=== PATIENT | female | born 1940 | race Caucasian/White ===

== ENCOUNTER → 2016-07-22 | Outpatient (CLI) | payer MEDICARE, OTHER ==
[~2016-07-22] MED LIST: APIX5TAB PO
== END | disposition home or self-care (01) ==
LOC: Rad HDHVI 10:31
PROVIDERS: ATTEND Internal Medicine Cardiovascular Disease
DX: I11.0 Hypertensive heart disease with heart failure (principal); I42.0 Dilated cardiomyopathy; I48.91 Unspecified atrial fibrillation; Z95.810 Presence of automatic (implantable) cardiac defibrillator; Z86.79 Personal history of other diseases of the circulatory system
CPT/HCPCS: 93306

== ENCOUNTER → 2016-07-31 | Outpatient (CLI) | payer MEDICARE, OTHER ==
[~2016-07-31] VITALS: Ht 157.5 cm; Wt 54.9 kg
[~2016-07-31] MED LIST changes: +ADENOSINE IV ONE; +GIVE UN DILUTED IV ONE
== END | disposition home or self-care (01) ==
LOC: HDHVI->DVH 09:40
PROVIDERS: ATTEND Internal Medicine Cardiovascular Disease
DX: I10 Essential (primary) hypertension (principal); Z95.0 Presence of cardiac pacemaker
CPT/HCPCS: 78452; 93005; 96374; 96375; A9500; J0153

== ENCOUNTER → 2016-08-12 | Outpatient (CLI) | payer MEDICARE, OTHER ==
[~2016-08-12] MED LIST changes: -ADENOSINE IV ONE; -GIVE UN DILUTED IV ONE
[2016-08-12 10:34] VITALS: BP 151/84
[2016-08-12 11:05] VITALS: BP 148/97
[2016-08-12 16:38] LABS: Basophils # (auto) 0 uL; Basophils % (auto) 0.3 % (0.0-2.0); Eosinophils # (auto) 0.2 uL; Eosinophils % (auto) 4.1 % (0.0-7.0); Hematocrit 43.1 % (36.0-46.0); Lymphocytes # (auto) 0.5 uL; Lymphocytes % (auto) 8.2 % (10.0-50.0); Mean Corpuscular Hemoglobin 30.6 pg (28.0-32.0); Mean Corpuscular Hgb Conc. 32.5 g/dL (32.0-36.0); Mean Corpuscular Volume 94.2 fL (80.0-100.0); Mean Platelet Volume 9.2 fL (7.4-10.4); Monocytes # (auto) 0.3 uL; Monocytes % (auto) 4.6 % (0.0-12.0); Neutrophils # (auto) 4.9 uL; Neutrophils % (auto) 82.8 % (37.0-80.0); Platelet Count (auto) 220 10^3/uL (140-450); Red Cell Distribution Width 15.1 % (11.6-16.0); White Blood Cell 5.9 10^3/uL (4.4-10.8)
[2016-08-12 16:49] LABS: Potassium 4.7 mmol/L (3.5-5.1)
[2016-08-12 16:50] LABS: INR 0.99 (0.9-1.15); Partial Thromboplastin Time 28.1 sec (22.64-33.71); Prothrombin Time 10.2 sec (9.37-12.3)
[2016-08-12 16:55] LABS: BUN/Creatinine Ratio 12.4; Calcium 8.9 mg/dL (8.5-10.1)
== END | disposition home or self-care (01) ==
LOC: Rad HDHVI 10:08
PROVIDERS: ATTEND Internal Medicine Cardiovascular Disease
DX: I10 Essential (primary) hypertension (principal); D64.9 Anemia, unspecified; R79.1 Abnormal coagulation profile
CPT/HCPCS: 36415; 71020; 80048; 85025; 85610; 85730; 93005; G0463

== ENCOUNTER 2016-08-14 08:16 | Inpatient (IN) | payer MEDICARE, OTHER ==
[~2016-08-14] VITALS: Ht 30.5 cm; Wt 60.2 kg
[2016-08-14] MEDS ORDERED: LIDOCAINE 2%HCL (LOCAL ANESTH.) INJ 20ML MDV ONE (08:18)
[2016-08-14] MEDS ORDERED: VANCOMYCIN 1GM/250ML D5W 250 ML IV ONE (08:45)
[2016-08-14] MEDS ORDERED: VANCOMYCIN HCL 1000 MG VL IR ONE (08:45)
[2016-08-14] MEDS ORDERED: ceFAZolin 1GM/50ML D5W 50 ML IV ONE (08:45)
[2016-08-14] MEDS ORDERED: MIDAZOLAM HCL 1MG/1ML-2 ML VIAL ONE (09:27)
[2016-08-14] MEDS ORDERED: fentaNYL CITRATE 100 MCG/2 ML VL ONE (09:27)
[2016-08-14] MEDS ORDERED: ATROPINE SULF 0.5 MG/5ML SYR ONE (09:53)
[2016-08-14] MEDS ORDERED: NITROGLYCERIN 0.4 MG SL TAB SL PRN (11:45)
[2016-08-14] MEDS ORDERED: MORPHINE SULF INJ 2 MG/ML SYRINGE 1ML IV PRN (11:45)
[2016-08-14] MEDS ORDERED: HYDROcodone-ACET 5/325MG TAB PO PRN (11:45)
[2016-08-14] MEDS ORDERED: ACETAMINOPHEN 325 MG TAB PO PRN (11:45)
[2016-08-14] MEDS ORDERED: METOCLOPRAMIDE HCL 5MG/ml INJ 2ml VIAL ONE (13:16)
[2016-08-14] MEDS ORDERED: METOCLOPRAMIDE HCL 5MG/ml INJ 2ml VIAL IV ONE (13:30)
[2016-08-14 17:30] VITALS: BP 136/73
[2016-08-14 20:00] VITALS: BP 149/82
[2016-08-14] MEDS: VANCOMYCIN 1GM/250ML D5W 250 ML IV SCH (21:30)
[2016-08-14 22:01] VITALS: BP 149/82
[2016-08-15 05:33] VITALS: BP 130/80
[2016-08-15 08:00] VITALS: BP 133/75
[2016-08-15 09:00] VITALS: BP 133/75
[2016-08-15] MEDS: VANCOMYCIN 1GM/250ML D5W 250 ML IV SCH (10:00)
[2016-08-15 13:00] VITALS: BP 137/74
== END 2016-08-15 16:39 | disposition home or self-care (01) | DRG 226 ==
LOC: CATH 08:16 → EAST 08:17 → TELE-WESTW 17:51
PROVIDERS: ADMIT Internal Medicine Cardiovascular Disease; ATTEND Internal Medicine Cardiovascular Disease
PROC: 02HL3KZ Insertion of Defibrillator Lead into Left Ventricle, Percutaneous Approach (ICD-10-PCS; principal; 2016-08-14)
PROC: 0JH609Z Insertion of Cardiac Resynchronization Defibrillator Pulse Generator into Chest Subcutaneous Tissue and Fascia, Open Approach (ICD-10-PCS; 2016-08-14)
PROC: 02H63KZ Insertion of Defibrillator Lead into Right Atrium, Percutaneous Approach (ICD-10-PCS; 2016-08-14)
PROC: 0JPT0PZ Removal of Cardiac Rhythm Related Device from Trunk Subcutaneous Tissue and Fascia, Open Approach (ICD-10-PCS; 2016-08-14)
PROC: 02PA3MZ Removal of Cardiac Lead from Heart, Percutaneous Approach (ICD-10-PCS; 2016-08-14)
DX: Z45.02 Encounter for adjustment and management of automatic implantable cardiac defibrillator (principal); I50.21 Acute systolic (congestive) heart failure; I42.0 Dilated cardiomyopathy; R64 Cachexia
CPT/HCPCS: 71010; 93005; J0461; J2250

== ENCOUNTER 2017-02-21 18:54 | Emergency (ER) | payer MEDICARE, OTHER ==
[~2017-02-21] VITALS: Ht 157.5 cm; Wt 54.4 kg
[2017-02-21 19:44] LABS: Basophils # (auto) 0 uL; Basophils % (auto) 0.5 % (0.0-2.0); Eosinophils # (auto) 0.2 uL; Eosinophils % (auto) 3.6 % (0.0-7.0); Hematocrit 38.7 % (36.0-46.0); Hemoglobin 13.3 g/dL (12.2-16.2); Lymphocytes # (auto) 0.6 uL; Lymphocytes % (auto) 11.1 % (10.0-50.0); Mean Corpuscular Hemoglobin 31.9 pg (28.0-32.0); Mean Corpuscular Hgb Conc. 34.2 g/dL (32.0-36.0); Mean Corpuscular Volume 93.2 fL (80.0-100.0); Mean Platelet Volume 7.5 fL (6.9-10.8); Monocytes # (auto) 0.4 uL; Monocytes % (auto) 7.4 % (0.0-12.0); Neutrophils % (auto) 77.4 % (37.0-80.0); Platelet Count (auto) 180 10^3/uL (140-450); Red Cell Distribution Width 13.4 % (11.8-14.3); White Blood Cell 5.1 10^3/uL (4.4-10.8)
[2017-02-21 19:59] LABS: INR 0.98 (0.9-1.15); Partial Thromboplastin Time 29.3 sec (22.64-33.71); Prothrombin Time 10.7 sec (9.37-12.3)
[2017-02-21 20:10] LABS: Albumin 3.2 g/dL (3.4-5.0); Alkaline Phosphatase 133 U/L (45-117); Anion Gap 8 (5-15); Aspartate Aminotransferase 31 U/L (15-37); BUN/Creatinine Ratio 25.7; Bilirubin, Total 0.5 mg/dL (0.2-1.0); Blood Urea Nitrogen 19 mg/dL (7-18); Calcium 8.7 mg/dL (8.5-10.1); Carbon Dioxide 27 mmol/L (21-32); Chloride 98 mmol/L (98-107); GFR African American 99 mL/min; GFR Non-African American 82 mL/min; Glucose 110 mg/dL (74-106); Magnesium 1.7 mg/dL (1.6-2.6); Potassium 4.1 mmol/L (3.5-5.1); Sodium 133 mmol/L (136-145); Total Protein 6.8 g/dL (6.4-8.2)
[2017-02-21 21:30] VITALS: BP 135/84
== END 2017-02-21 23:01 | disposition left against medical advice (07) ==
LOC: ER 18:55
DX: I48.91 Unspecified atrial fibrillation (principal); T82.111A Breakdown (mechanical) of cardiac pulse generator (battery), initial encounter; F41.9 Anxiety disorder, unspecified; I50.9 Heart failure, unspecified; Z95.0 Presence of cardiac pacemaker; Z88.0 Allergy status to penicillin; Y92.89 Other specified places as the place of occurrence of the external cause; Z53.29 Procedure and treatment not carried out because of patient's decision for other reasons
CPT/HCPCS: 36415; 71010; 80053; 83735; 84484; 85025; 85610; 85730; 93005

== ENCOUNTER → 2017-03-06 | Outpatient (CLI) | payer MEDICARE, OTHER ==
[~2017-03-06] MED LIST changes: +B-COCAP34 OR; +CALC1TAB47 PO; +CHOL20007 PO; +HYDR12.56 PO; +LISI40TA PO; +SOTA80TA PO
[2017-03-06 12:05] VITALS: BP 108/66
[2017-03-06 12:40] VITALS: BP 111/70
[2017-03-06 16:27] LABS: Basophils # (auto) 0 uL; Basophils % (auto) 0.5 % (0.0-2.0); Eosinophils # (auto) 0.3 uL; Eosinophils % (auto) 5.6 % (0.0-7.0); Hematocrit 38.5 % (36.0-46.0); Hemoglobin 13.2 g/dL (12.2-16.2); Lymphocytes # (auto) 0.6 uL; Lymphocytes % (auto) 11.3 % (10.0-50.0); Mean Corpuscular Hemoglobin 31.7 pg (28.0-32.0); Mean Corpuscular Hgb Conc. 34.2 g/dL (32.0-36.0); Mean Corpuscular Volume 92.7 fL (80.0-100.0); Mean Platelet Volume 8.2 fL (6.9-10.8); Monocytes # (auto) 0.4 uL; Neutrophils # (auto) 4.3 uL; Neutrophils % (auto) 75.6 % (37.0-80.0); Nucleated Red Blood Cells % 0.2 %; Platelet Count (auto) 240 10^3/uL (140-450); Red Cell Distribution Width 13.3 % (11.8-14.3); White Blood Cell 5.6 10^3/uL (4.4-10.8)
[2017-03-06 16:39] LABS: BUN/Creatinine Ratio 15.2; Calcium 8.9 mg/dL (8.5-10.1); Potassium 4.7 mmol/L (3.5-5.1)
[2017-03-06 16:40] LABS: INR 1.01 (0.9-1.15); Partial Thromboplastin Time 32.2 sec (22.64-33.71)
== END | disposition home or self-care (01) ==
LOC: Rad HDHVI 11:11
PROVIDERS: ATTEND Internal Medicine Cardiovascular Disease
DX: Z01.812 Encounter for preprocedural laboratory examination (principal); I10 Essential (primary) hypertension; D64.9 Anemia, unspecified; E78.00 Pure hypercholesterolemia, unspecified; I48.91 Unspecified atrial fibrillation; R79.1 Abnormal coagulation profile; Z95.0 Presence of cardiac pacemaker
CPT/HCPCS: 36415; 80048; 85025; 85610; 85730; 93005; G0463

== ENCOUNTER 2017-03-12 10:30 | Day surgery (SDC) | payer MEDICARE, OTHER ==
[~2017-03-12] VITALS: Ht 154.9 cm; Wt 54.4 kg
[2017-03-12] MEDS ORDERED: fentaNYL CITRATE 100 MCG/2 ML VL IV ONE (10:45)
[2017-03-12] MEDS ORDERED: MIDAZOLAM HCL 1MG/1ML-2 ML VIAL IV ONE (10:45)
[2017-03-12] MEDS ORDERED: FLUMAZENIL 0.1 MG/ML INJ 10ML MDV IV ONE (10:45)
[2017-03-12] MEDS ORDERED: NALOXONE HCL 0.4 MG/ML VIAL IV ONE (10:45)
== END 2017-03-12 14:26 | disposition home or self-care (01) ==
LOC: CATH 10:30
PROVIDERS: ATTEND Internal Medicine Cardiovascular Disease
DX: I48.91 Unspecified atrial fibrillation (principal); Q24.9 Congenital malformation of heart, unspecified; Z95.810 Presence of automatic (implantable) cardiac defibrillator; I10 Essential (primary) hypertension; Z98.84 Bariatric surgery status; Z88.0 Allergy status to penicillin; I42.9 Cardiomyopathy, unspecified; I50.20 Unspecified systolic (congestive) heart failure
CPT/HCPCS: 92960; J2250; J3010; J7030; 99152; 99153

== ENCOUNTER → 2017-03-27 | Outpatient (CLI) | payer MEDICARE, OTHER ==
[2017-03-27 13:05] LABS: Basophils # (auto) 0 uL; Basophils % (auto) 0.4 % (0.0-2.0); Eosinophils # (auto) 0.2 uL; Eosinophils % (auto) 3.5 % (0.0-7.0); Hematocrit 39.1 % (36.0-46.0); Hemoglobin 13.4 g/dL (12.2-16.2); Lymphocytes # (auto) 0.5 uL; Lymphocytes % (auto) 10.2 % (10.0-50.0); Mean Corpuscular Hemoglobin 31.9 pg (28.0-32.0); Mean Corpuscular Hgb Conc. 34.1 g/dL (32.0-36.0); Mean Corpuscular Volume 93.3 fL (80.0-100.0); Monocytes # (auto) 0.3 uL; Monocytes % (auto) 5.7 % (0.0-12.0); Neutrophils % (auto) 80.2 % (37.0-80.0); Platelet Count (auto) 182 10^3/uL (140-450); Red Blood Cells 4.19 10^6/uL (4.0-5.20); Red Cell Distribution Width 13.6 % (11.8-14.3)
[2017-03-27 13:42] LABS: Albumin 3.8 g/dL (3.4-5.0); BUN/Creatinine Ratio 11.8; Bilirubin, Direct 0.4 mg/dL (0-0.2); Bilirubin, Total 1.3 mg/dL (0.2-1.0); Calcium 9.2 mg/dL (8.5-10.1); Potassium 3.7 mmol/L (3.5-5.1); Total Protein 7.5 g/dL (6.4-8.2)
[2017-03-27 16:06] LABS: Urine Blood Negative /uL (Negative); Urine Specific Gravity 1.006 (1.001-1.035)
== END | disposition home or self-care (01) ==
LOC: Rad HDHVI 10:42
PROVIDERS: ATTEND Internal Medicine Cardiovascular Disease
DX: I08.1 Rheumatic disorders of both mitral and tricuspid valves (principal); I11.0 Hypertensive heart disease with heart failure; I50.23 Acute on chronic systolic (congestive) heart failure; E11.9 Type 2 diabetes mellitus without complications; E78.00 Pure hypercholesterolemia, unspecified; K74.1 Hepatic sclerosis; E03.9 Hypothyroidism, unspecified; D64.9 Anemia, unspecified; E55.9 Vitamin D deficiency, unspecified; N39.0 Urinary tract infection, site not specified
CPT/HCPCS: 36415; 80048; 80061; 80076; 81003; 82306; 83036; 84439; 84443; 85025; 93306

== ENCOUNTER → 2018-02-19 | Outpatient (CLI) | payer MEDICARE, OTHER | END | disposition home or self-care (01) | LOC: Rad HDHVI 15:04 | PROVIDERS: ATTEND Internal Medicine Cardiovascular Disease | DX: I08.2 Rheumatic disorders of both aortic and tricuspid valves (principal); I48.0 Paroxysmal atrial fibrillation; I50.43 Acute on chronic combined systolic (congestive) and diastolic (congestive) heart failure; I42.0 Dilated cardiomyopathy | CPT/HCPCS: 93306 ==

== ENCOUNTER 2020-03-11 10:30 | Emergency (ER) | payer MEDICARE, OTHER ==
[~2020-03-11] VITALS: Ht 157.5 cm; Wt 52.2 kg
[~2020-03-11 10:30] MED LIST changes: +FURO20TA3 PO; -LISI40TA PO; +LISI40TA11 PO
[2020-03-11 10:37] VITALS: BP 159/105
== END 2020-03-11 11:16 | disposition left against medical advice (07) ==
LOC: ER 10:30 → EDBD 10:30 → ER 11:16
DX: R55 Syncope and collapse (principal); I48.91 Unspecified atrial fibrillation; I11.0 Hypertensive heart disease with heart failure; I50.9 Heart failure, unspecified; Z90.49 Acquired absence of other specified parts of digestive tract; Z90.710 Acquired absence of both cervix and uterus
CPT/HCPCS: 93005

== ENCOUNTER 2021-07-05 10:52 | Observation (INO) | payer MEDICARE, OTHER ==
[~2021-07-05] VITALS: Ht 157.5 cm; Wt 56.6 kg
[2021-07-05] MEDS ORDERED: SODIUM CHLORIDE 0.9% 500 ML IVB ONE (11:15)
[2021-07-05] MEDS ORDERED: ONDANSETRON HCL 4 MG/2 ML VIAL IV ONE (11:15)
[2021-07-05] MEDS ORDERED: MORPHINE SULFATE 4 MG/ML SYR/VIAL IV ONE (11:15)
[2021-07-05 11:57] LABS: Urine Bacteria FEW /hpf (None Seen); Urine Blood Negative /uL (Negative); Urine Mucus FEW (None Seen); Urine Specific Gravity 1.033 (1.001-1.035); Urine WBC 13 /hpf (0 - 5)
[2021-07-05 11:59] LABS: Basophils # (auto) 0 10 ^3/uL (0-0.2); Basophils % (auto) 0.3 % (0.0-2.0); Eosinophils # (auto) 0.1 10 ^3/uL (0-0.8); Eosinophils % (auto) 1.6 % (0.0-7.0); Hematocrit 38.5 % (36.0-46.0); Hemoglobin 13.6 g/dL (12.2-16.2); Lymphocytes # (auto) 0.8 10 ^3/uL (0.4-5.4); Lymphocytes % (auto) 8.9 % (10.0-50.0); Mean Corpuscular Hgb Conc. 35.4 g/dL (32.0-36.0); Mean Corpuscular Volume 93.4 fL (80.0-100.0); Monocytes # (auto) 0.5 10 ^3/uL (0-1.3); Monocytes % (auto) 5.3 % (0.0-12.0); Neutrophils # (auto) 7.6 10 ^3/uL (1.6-8.6); Neutrophils % (auto) 83.9 % (37.0-80.0); Nucleated Red Blood Cells % 0.1 %; Red Blood Cells 4.13 10^6/uL (4.0-5.20); Red Cell Distribution Width 14.1 % (11.8-14.3)
[2021-07-05] MEDS ORDERED: cefTRIAXone 1GM/50ML D5W 50 ML IV ONE (12:15)
[2021-07-05 12:24] LABS: Potassium 3.3 mmol/L (3.5-5.1)
[2021-07-05 12:32] LABS: Albumin 3.5 g/dL (3.4-5.0); Bilirubin, Total 1.1 mg/dL (0.2-1.0); Calcium 8.9 mg/dL (8.5-10.1); Total Protein 6.8 g/dL (6.4-8.2)
[2021-07-05] MEDS ORDERED: MORPHINE SULFATE INJECTION 2 MG/ML SYRG IV PRN ×2 (15:30)
[2021-07-05] MEDS ORDERED: HYDROcodone-ACET 5/325MG TAB PO PRN (15:30)
[2021-07-05] MEDS ORDERED: ACETAMINOPHEN 325 MG TAB PO PRN (15:30)
[2021-07-05] MEDS ORDERED: NITROGLYCERIN 0.4 MG SL TAB SL PRN (15:30)
[2021-07-05] MEDS ORDERED: HYDROcodone-ACET 10/325MG TAB PO PRN (19:00)
[2021-07-05] MEDS: SOTALOL HCL 80 MG TAB PO SCH (20:10)
[2021-07-05] MEDS: SODIUM CHLORIDE 0.9% 1,000 ML IV SCH (20:33)
[2021-07-05] MEDS: AZTREONAM 1GM INJ 1 GM in D5W 5% 50 ML IV SCH (21:32)
[2021-07-05 21:56] VITALS: BP 138/89
[2021-07-05 22:00] VITALS: BP 124/85
[2021-07-05] MEDS ORDERED: POTASSIUM CHL 20 Meq TABLET PO ONE (22:15)
[2021-07-05] MEDS: APIXABAN 5 MG TAB PO SCH (22:28)
[2021-07-06] MEDS: AZTREONAM 1GM INJ 1 GM in D5W 5% 50 ML IV SCH ×3 (05:11→22:17)
[2021-07-06 05:19] LABS: Basophils # (auto) 0 10 ^3/uL (0-0.2); Basophils % (auto) 0.4 % (0.0-2.0); Eosinophils # (auto) 0.2 10 ^3/uL (0-0.8); Eosinophils % (auto) 2.5 % (0.0-7.0); Hematocrit 40.1 % (36.0-46.0); Hemoglobin 13.7 g/dL (12.2-16.2); Lymphocytes # (auto) 0.6 10 ^3/uL (0.4-5.4); Lymphocytes % (auto) 9.8 % (10.0-50.0); Mean Corpuscular Hemoglobin 32.3 pg (28.0-32.0); Mean Corpuscular Hgb Conc. 34.2 g/dL (32.0-36.0); Mean Corpuscular Volume 94.5 fL (80.0-100.0); Monocytes # (auto) 0.3 10 ^3/uL (0-1.3); Neutrophils # (auto) 5.2 10 ^3/uL (1.6-8.6); Neutrophils % (auto) 82.3 % (37.0-80.0); Red Blood Cells 4.25 10^6/uL (4.0-5.20); Red Cell Distribution Width 14.3 % (11.8-14.3); White Blood Cell 6.3 10^3/uL (4.4-10.8)
[2021-07-06 05:21] LABS: Calcium 8.8 mg/dL (8.5-10.1); Potassium 3.8 mmol/L (3.5-5.1)
[2021-07-06 05:25] LABS: Albumin 3.4 g/dL (3.4-5.0); BUN/Creatinine Ratio 19.2
[2021-07-06 05:27] LABS: Bilirubin, Total 1.3 mg/dL (0.2-1.0); Total Protein 6.5 g/dL (6.4-8.2)
[2021-07-06] MEDS: SOTALOL HCL 80 MG TAB PO SCH ×2 (06:37→17:39)
[2021-07-06] MEDS: SODIUM CHLORIDE 0.9% 1,000 ML IV SCH (08:10)
[2021-07-06] MEDS: APIXABAN 5 MG TAB PO SCH ×2 (09:12→22:18)
[2021-07-06 09:42] VITALS: BP 126/81
[2021-07-06] MEDS ORDERED: ENOXAPARIN SOD 40 MG/0.4 ML SYRINGE SC SCH (10:00)
[2021-07-06 13:14] VITALS: BP 145/97
[2021-07-06 17:09] VITALS: BP 136/77
[2021-07-06 23:04] VITALS: BP 149/99
[2021-07-07 05:15] VITALS: BP 146/89
[2021-07-07] MEDS: AZTREONAM 1GM INJ 1 GM in D5W 5% 50 ML IV SCH ×2 (05:41→14:00)
[2021-07-07 05:56] LABS: Potassium 4.4 mmol/L (3.5-5.1)
[2021-07-07] MEDS: SOTALOL HCL 80 MG TAB PO SCH (06:01)
[2021-07-07 06:03] LABS: BUN/Creatinine Ratio 24.1; Calcium 8.6 mg/dL (8.5-10.1)
[2021-07-07 09:00] VITALS: BP 123/80
[2021-07-07] MEDS: APIXABAN 5 MG TAB PO SCH (09:36)
[2021-07-07] MEDS ORDERED: CIPR250T3 PO (10:41)
[2021-07-07 14:20] VITALS: BP 133/85
== END 2021-07-07 16:11 | disposition home or self-care (01) ==
LOC: ER 10:52 → OVERFLOW 15:29 → WEST WING 17:50 → TELE-WESTW 22:23
PROVIDERS: ADMIT Internal Medicine; ATTEND Internal Medicine
DX: N39.0 Urinary tract infection, site not specified (principal); Z20.822 Contact with and (suspected) exposure to COVID-19; E87.6 Hypokalemia; I11.0 Hypertensive heart disease with heart failure; I50.30 Unspecified diastolic (congestive) heart failure; E50.9 Vitamin A deficiency, unspecified; F03.90 Unspecified dementia, unspecified severity, without behavioral disturbance, psychotic disturbance, mood disturbance, and anxiety; I49.5 Sick sinus syndrome; N10 Acute pyelonephritis; I48.91 Unspecified atrial fibrillation; R10.9 Unspecified abdominal pain; Z90.49 Acquired absence of other specified parts of digestive tract; Z90.710 Acquired absence of both cervix and uterus; Z95.0 Presence of cardiac pacemaker; Z79.899 Other long term (current) drug therapy; Z98.890 Other specified postprocedural states; Z87.820 Personal history of traumatic brain injury
CPT/HCPCS: 36415; 74176; 76775; 80048; 80053; 81001; 83690; 83735; 85025; 87086; 87426; 96361; 96365; 96366; 96367; 96375; 99284; G0378; J0696; J2270; J2405; J7030; J7060

== ENCOUNTER 2021-08-08 09:24 | Inpatient (IN) | payer MEDICARE, OTHER ==
[~2021-08-08] VITALS: Ht 162.6 cm; Wt 46.7 kg
[~2021-08-08 09:24] MED LIST changes: +CIPR250T3 PO
[2021-08-08 10:21] LABS: Basophils # (auto) 0.2 10 ^3/uL (0-0.2); Basophils % (auto) 1.6 % (0.0-2.0); Eosinophils # (auto) 0.1 10 ^3/uL (0-0.8); Eosinophils % (auto) 0.7 % (0.0-7.0); Hematocrit 44.3 % (36.0-46.0); Lymphocytes # (auto) 0.7 10 ^3/uL (0.4-5.4); Lymphocytes % (auto) 5.6 % (10.0-50.0); Mean Corpuscular Hemoglobin 32.9 pg (28.0-32.0); Mean Corpuscular Hgb Conc. 33.8 g/dL (32.0-36.0); Mean Corpuscular Volume 97.3 fL (80.0-100.0); Monocytes # (auto) 0.5 10 ^3/uL (0-1.3); Monocytes % (auto) 4.1 % (0.0-12.0); Nucleated Red Blood Cells % 0.1 %; Red Blood Cells 4.55 10^6/uL (4.0-5.20); Red Cell Distribution Width 15.6 % (11.8-14.3); White Blood Cell 12.5 10^3/uL (4.4-10.8)
[2021-08-08 10:56] LABS: Lactic Acid w/Reflex 5.3 mmol/L (0.4-2.0)
[2021-08-08 11:04] LABS: Potassium 4.6 mmol/L (3.5-5.1)
[2021-08-08 11:09] LABS: Albumin 3.5 g/dL (3.4-5.0); BUN/Creatinine Ratio 25.7; Bilirubin, Total 2.9 mg/dL (0.2-1.0); Calcium 9.2 mg/dL (8.5-10.1); Total Protein 6.8 g/dL (6.4-8.2)
[2021-08-08] MEDS ORDERED: MEGE40TA4 PO (11:29)
[2021-08-08] MEDS ORDERED: SODIUM CHLORIDE 0.9% 500 ML IV ONE ×2 (11:30→12:00)
[2021-08-08] MEDS ORDERED: fentaNYL CITRATE 100 MCG/2 ML VL IV ONE (11:30)
[2021-08-08] MEDS ORDERED: HYDR-4798 PO (11:36)
[2021-08-08] MEDS ORDERED: SOTALOL HCL 80 MG TAB PO ONE (12:15)
[2021-08-08] MEDS ORDERED: VANCOMYCIN PER PHARMACY 0 MG IV SCH (12:30)
[2021-08-08] MEDS ORDERED: NITROGLYCERIN 0.4 MG SL TAB SL PRN (12:30)
[2021-08-08] MEDS ORDERED: ONDANSETRON HCL 4 MG/2 ML VIAL IV PRN (12:30)
[2021-08-08] MEDS ORDERED: ACETAMINOPHEN 325 MG TAB PO PRN (12:30)
[2021-08-08] MEDS ORDERED: MORPHINE SULFATE INJECTION 2 MG/ML SYRG IV PRN (12:30)
[2021-08-08] MEDS ORDERED: DOCUSATE SOD 100 MG CAP PO PRN (12:30)
[2021-08-08] MEDS ORDERED: VANCOMYCIN 1GM/250ML 250 ML IV ONE (12:45)
[2021-08-08] MEDS: SODIUM CHLORIDE 0.9% 1,000 ML IV SCH (14:49)
[2021-08-08 15:41] LABS: INR 1.05 (0.9-1.15)
[2021-08-08 16:42] VITALS: BP 126/82
[2021-08-08 20:00] VITALS: BP 123/82
[2021-08-08] MEDS ORDERED: HEPARIN SODIUM (PORCINE) 5000 UNITS/ML 1ML VIAL SC SCH (22:00)
[2021-08-08] MEDS: ASCORBIC ACID 500 MG TAB PO SCH (22:22)
[2021-08-08] MEDS: SOTALOL HCL 80 MG TAB PO SCH (22:49)
[2021-08-08] MEDS: HYDROcodone-ACET 5/325MG TAB PO PRN (22:54)
[2021-08-09] VITALS (13 sets, daily range): BP systolic 101–138; BP diastolic 61–84
[2021-08-09] MEDS: SODIUM CHLORIDE 0.9% 1,000 ML IV SCH (05:10)
[2021-08-09 06:02] LABS: Basophils # (auto) 0.1 10 ^3/uL (0-0.2); Basophils % (auto) 1.1 % (0.0-2.0); Eosinophils # (auto) 0.1 10 ^3/uL (0-0.8); Eosinophils % (auto) 0.7 % (0.0-7.0); Hematocrit 37.5 % (36.0-46.0); Hemoglobin 13.2 g/dL (12.2-16.2); Lymphocytes # (auto) 0.7 10 ^3/uL (0.4-5.4); Lymphocytes % (auto) 10.6 % (10.0-50.0); Mean Corpuscular Hgb Conc. 35.3 g/dL (32.0-36.0); Mean Corpuscular Volume 93.4 fL (80.0-100.0); Monocytes # (auto) 0.6 10 ^3/uL (0-1.3); Neutrophils # (auto) 5.5 10 ^3/uL (1.6-8.6); Neutrophils % (auto) 79.6 % (37.0-80.0); Nucleated Red Blood Cells % 0.2 %; Red Blood Cells 4.01 10^6/uL (4.0-5.20); Red Cell Distribution Width 15.2 % (11.8-14.3); White Blood Cell 6.9 10^3/uL (4.4-10.8)
[2021-08-09 06:08] LABS: Potassium 3.9 mmol/L (3.5-5.1)
[2021-08-09 06:12] LABS: Calcium 8.3 mg/dL (8.5-10.1)
[2021-08-09 06:14] LABS: Bilirubin, Total 2.4 mg/dL (0.2-1.0); Total Protein 5.8 g/dL (6.4-8.2)
[2021-08-09] MEDS ORDERED: VANCOMYCIN HCL 1000 MG VL ONE (08:29)
[2021-08-09] MEDS ORDERED: BUPIVACAINE 0.5% P/F INJ 10 ML VIAL ONE (08:44)
[2021-08-09] MEDS ORDERED: PROPOFOL 10 MG/ML 20 ML IV ONE (08:46)
[2021-08-09] MEDS ORDERED: KETAMINE HCL 10 ML ONE (08:46)
[2021-08-09] MEDS ORDERED: MIDAZOLAM HCL 2MG/2ML 2ml VIAL (1mg/ml) ONE (08:46)
[2021-08-09] MEDS ORDERED: ePHEDrine SULFATE 50 MG/ML AMP ONE (08:46)
[2021-08-09] MEDS ORDERED: fentaNYL CITRATE 100 MCG/2 ML VL ONE (08:46)
[2021-08-09] MEDS ORDERED: MORPHINE SULF PF 5 MG/10 ML VIAL ONE (08:46)
[2021-08-09] MEDS ORDERED: GLYCOPYRROLATE 0.2 MG/ML 1ML VIAL ONE (08:46)
[2021-08-09] MEDS ORDERED: ONDANSETRON HCL 4 MG/2 ML VIAL ONE (08:46)
[2021-08-09] MEDS ORDERED: PHENYLEPHRINE HCL 10 MG/ML VL ONE (08:46)
[2021-08-09] MEDS: SOTALOL HCL 80 MG TAB PO SCH ×2 (10:00→22:16)
[2021-08-09] MEDS: ZINC SULFATE 220mg CAP or TAB PO SCH (10:00)
[2021-08-09] MEDS: ASPirin 81 mg TAB PO SCH (10:00)
[2021-08-09] MEDS: ASCORBIC ACID 500 MG TAB PO SCH ×2 (10:00→22:17)
[2021-08-09] MEDS: MULTIPLE VITAMIN TAB PO SCH (10:00)
[2021-08-09] MEDS ORDERED: FAMOTIDINE (10MG/ML) 2ML VL IV SCH (10:00)
[2021-08-09] MEDS ORDERED: LACTATED RINGER'S 1,000 ML IV SCH (10:15)
[2021-08-09] MEDS ORDERED: DexAMETHasone SOD PHOS 10MG/1ML VIAL INJ IV PRN (10:30)
[2021-08-09] MEDS ORDERED: ONDANSETRON HCL 4 MG/2 ML VIAL IV PRN ×2 (10:30)
[2021-08-09] MEDS ORDERED: NALOXONE HCL 0.4 MG/ML VIAL IV PRN ×2 (10:30)
[2021-08-09] MEDS: SODIUM CHLOR 0.9% PF (SALINE LOCK) 10ML VIAL/SYR IV SCH ×2 (13:48→22:16)
[2021-08-09] MEDS: VANCOMYCIN 1GM/250ML 250 ML IV SCH (17:00)
[2021-08-10] VITALS (15 sets, daily range): BP systolic 95–131; BP diastolic 58–78
[2021-08-10] MEDS: SODIUM CHLOR 0.9% PF (SALINE LOCK) 10ML VIAL/SYR IV SCH ×3 (06:15→22:32)
[2021-08-10 06:35] LABS: Basophils # (auto) 0 10 ^3/uL (0-0.2); Basophils % (auto) 0.1 % (0.0-2.0); Eosinophils # (auto) 0.1 10 ^3/uL (0-0.8); Eosinophils % (auto) 1.8 % (0.0-7.0); Hematocrit 32.3 % (36.0-46.0); Hemoglobin 11.6 g/dL (12.2-16.2); Lymphocytes # (auto) 0.6 10 ^3/uL (0.4-5.4); Lymphocytes % (auto) 10.2 % (10.0-50.0); Mean Corpuscular Hemoglobin 33.7 pg (28.0-32.0); Mean Corpuscular Hgb Conc. 35.8 g/dL (32.0-36.0); Mean Corpuscular Volume 94.1 fL (80.0-100.0); Monocytes # (auto) 0.5 10 ^3/uL (0-1.3); Neutrophils # (auto) 4.8 10 ^3/uL (1.6-8.6); Neutrophils % (auto) 78.9 % (37.0-80.0); Nucleated Red Blood Cells % 0.1 %; Red Blood Cells 3.43 10^6/uL (4.0-5.20); Red Cell Distribution Width 15.4 % (11.8-14.3); White Blood Cell 6.1 10^3/uL (4.4-10.8)
[2021-08-10 07:06] LABS: BUN/Creatinine Ratio 40.6; Calcium 8.1 mg/dL (8.5-10.1)
[2021-08-10] MEDS: ENOXAPARIN SOD 40 MG/0.4 ML SYRINGE SC SCH (10:00)
[2021-08-10] MEDS: ASCORBIC ACID 500 MG TAB PO SCH ×2 (10:00→22:32)
[2021-08-10] MEDS: MULTIPLE VITAMIN TAB PO SCH (10:00)
[2021-08-10] MEDS: SOTALOL HCL 80 MG TAB PO SCH ×2 (10:00→22:34)
[2021-08-10] MEDS: ASPirin 81 mg TAB PO SCH (10:00)
[2021-08-10] MEDS: ZINC SULFATE 220mg CAP or TAB PO SCH (10:00)
[2021-08-10] MEDS: HYDROcodone-ACET 5/325MG TAB PO PRN ×2 (15:24→20:04)
[2021-08-10] MEDS: VANCOMYCIN 1GM/250ML 250 ML IV SCH (17:00)
[2021-08-11] VITALS (7 sets, daily range): BP systolic 97–114; BP diastolic 57–72
[2021-08-11] MEDS: HYDROcodone-ACET 5/325MG TAB PO PRN ×3 (02:13→15:14)
[2021-08-11 05:19] LABS: Hematocrit 33.2 % (36.0-46.0); Hemoglobin 11.6 g/dL (12.2-16.2)
[2021-08-11] MEDS: SODIUM CHLOR 0.9% PF (SALINE LOCK) 10ML VIAL/SYR IV SCH ×3 (05:48→22:14)
[2021-08-11] MEDS: ASPirin 81 mg TAB PO SCH (09:27)
[2021-08-11] MEDS: MULTIPLE VITAMIN TAB PO SCH (09:27)
[2021-08-11] MEDS: ENOXAPARIN SOD 40 MG/0.4 ML SYRINGE SC SCH (09:27)
[2021-08-11] MEDS: ZINC SULFATE 220mg CAP or TAB PO SCH (09:28)
[2021-08-11] MEDS: ASCORBIC ACID 500 MG TAB PO SCH ×2 (10:28→22:15)
[2021-08-11] MEDS: SOTALOL HCL 80 MG TAB PO SCH ×2 (10:29→22:24)
[2021-08-11] MEDS: VANCOMYCIN 1GM/250ML 250 ML IV SCH (17:24)
[2021-08-12] MEDS: HYDROcodone-ACET 5/325MG TAB PO PRN ×3 (01:31→15:53)
[2021-08-12 05:00] VITALS: BP 101/66
[2021-08-12 05:10] LABS: Hemoglobin 10.7 g/dL (12.2-16.2)
[2021-08-12] MEDS: SODIUM CHLOR 0.9% PF (SALINE LOCK) 10ML VIAL/SYR IV SCH ×3 (06:22→22:41)
[2021-08-12 08:48] VITALS: BP 119/88
[2021-08-12] MEDS: SOTALOL HCL 80 MG TAB PO SCH ×2 (09:05→22:41)
[2021-08-12] MEDS: ASPirin 81 mg TAB PO SCH (09:05)
[2021-08-12] MEDS: MULTIPLE VITAMIN TAB PO SCH (09:07)
[2021-08-12] MEDS: ASCORBIC ACID 500 MG TAB PO SCH ×2 (09:07→22:42)
[2021-08-12] MEDS: ENOXAPARIN SOD 40 MG/0.4 ML SYRINGE SC SCH (09:07)
[2021-08-12] MEDS: ZINC SULFATE 220mg CAP or TAB PO SCH (09:07)
[2021-08-12 14:10] VITALS: BP 124/63
[2021-08-12 17:00] VITALS: BP 123/67
[2021-08-12 22:00] VITALS: BP 106/77
[2021-08-12] MEDS: MEGESTROL ACETATE 20 MG TAB PO SCH (22:42)
[2021-08-12] MEDS ORDERED: VANCOMYCIN 750mg/250ml 250 ML IV SCH (23:00)
[2021-08-13 05:00] VITALS: BP 105/81
[2021-08-13] MEDS: SODIUM CHLOR 0.9% PF (SALINE LOCK) 10ML VIAL/SYR IV SCH ×2 (06:00→13:00)
[2021-08-13 06:02] LABS: Anion Gap 7 (5-15); Blood Urea Nitrogen 36 mg/dL (7-18); Calcium 8.4 mg/dL (8.5-10.1); Carbon Dioxide 20 mmol/L (21-32); Chloride 104 mmol/L (98-107); GFR African American 54 mL/min; GFR Non-African American 44 mL/min; Glucose 107 mg/dL (74-106); Potassium 4.5 mmol/L (3.5-5.1); Sodium 131 mmol/L (136-145)
[2021-08-13 08:00] VITALS: BP 121/78
[2021-08-13] MEDS ORDERED: FUROSEMIDE 20 MG TAB PO SCH (10:00)
[2021-08-13 12:00] VITALS: BP 124/64
[2021-08-13] MEDS: ASPirin 81 mg TAB PO SCH (12:41)
[2021-08-13] MEDS: SOTALOL HCL 80 MG TAB PO SCH (12:43)
[2021-08-13] MEDS: ASCORBIC ACID 500 MG TAB PO SCH (12:44)
[2021-08-13] MEDS: MULTIPLE VITAMIN TAB PO SCH (12:44)
[2021-08-13] MEDS: ENOXAPARIN SOD 40 MG/0.4 ML SYRINGE SC SCH (12:44)
[2021-08-13] MEDS: MEGESTROL ACETATE 20 MG TAB PO SCH (12:44)
[2021-08-13] MEDS: ZINC SULFATE 220mg CAP or TAB PO SCH (12:49)
== END 2021-08-13 16:15 | DRG 481 ==
LOC: ER 09:24 → EDUNIT# 09:24 → EDBD 09:24 → OVERFLOW 12:22 → EAST 15:09 → TELE-EAST 08-09 10:52
PROVIDERS: ADMIT Nurse Practitioner Family; ATTEND Family Medicine
PROC: BQ101ZZ Fluoroscopy of Right Hip using Low Osmolar Contrast (ICD-10-PCS; 2021-08-09)
PROC: 0QS604Z Reposition Right Upper Femur with Internal Fixation Device, Open Approach (ICD-10-PCS; principal; 2021-08-09 09:05)
DX: S72.141A Displaced intertrochanteric fracture of right femur, initial encounter for closed fracture (principal); D68.59 Other primary thrombophilia; E87.2 Acidosis; N17.9 Acute kidney failure, unspecified; R65.10 Systemic inflammatory response syndrome (SIRS) of non-infectious origin without acute organ dysfunction; I27.21 Secondary pulmonary arterial hypertension; I50.9 Heart failure, unspecified; I48.91 Unspecified atrial fibrillation; R33.9 Retention of urine, unspecified; F03.90 Unspecified dementia, unspecified severity, without behavioral disturbance, psychotic disturbance, mood disturbance, and anxiety; I11.0 Hypertensive heart disease with heart failure; I25.10 Atherosclerotic heart disease of native coronary artery without angina pectoris; Z96.649 Presence of unspecified artificial hip joint; R00.0 Tachycardia, unspecified; M16.11 Unilateral primary osteoarthritis, right hip; Z20.822 Contact with and (suspected) exposure to COVID-19; W18.39XA Other fall on same level, initial encounter; Z88.0 Allergy status to penicillin; Z90.49 Acquired absence of other specified parts of digestive tract; Z82.49 Family history of ischemic heart disease and other diseases of the circulatory system; Z87.820 Personal history of traumatic brain injury; Z90.710 Acquired absence of both cervix and uterus; Z95.810 Presence of automatic (implantable) cardiac defibrillator; Y93.89 Activity, other specified; Y92.89 Other specified places as the place of occurrence of the external cause; Y99.8 Other external cause status
CPT/HCPCS: 36415; 70450; 71045; 73501; 73502; 73700; 76000; 80048; 80053; 80202; 82553; 82565; 83605; 83735; 83880; 84484; 85014; 85018; 85025; 85610; 87040; 87076; 93005; 93306; 96361; 96374; 97110; 97116; 97530; A4565; G0378; J2250; J2405; J2704; J3490; J7060

== ENCOUNTER 2021-08-14 11:57 | Inpatient (IN) | payer MEDICARE, OTHER ==
[~2021-08-14] VITALS: Ht 157.5 cm; Wt 42.0 kg
[2021-08-14] VITALS (13 sets, daily range): BP systolic 132–172; BP diastolic 26–180
[~2021-08-14 11:57] MED LIST changes: -APIX5TAB PO; -CIPR250T3 PO; +HYDR-4798 PO; -HYDR12.56 PO; -LISI40TA11 PO; +MEGE40TA4 PO
[2021-08-14] MEDS ORDERED: DEXTROSE 50% SYRINGE 50 ML IV ONE (12:01)
[2021-08-14] MEDS ORDERED: MAGNESIUM SULFATE 1GM/100ML 200 ML IV ONE (12:08)
[2021-08-14] MEDS ORDERED: methylPREDNISolone SOD SUCC 125 MG/2 ML VL ONE (12:08)
[2021-08-14] MEDS ORDERED: ALBUTEROL SULF 2.5 MG/0.5ML(0.5%) NEB SOLN ONE (12:08)
[2021-08-14] MEDS: MAGNESIUM SULFATE 1GM/100ML 100 ML IV SCH ×2 (12:15→13:15)
[2021-08-14] MEDS ORDERED: ALBUTEROL SULF 2.5 MG/0.5ML(0.5%) NEB SOLN NEB ONE (12:15)
[2021-08-14] MEDS ORDERED: methylPREDNISolone SOD SUCC 125 MG/2 ML VL IV ONE (12:15)
[2021-08-14] MEDS ORDERED: DEXTROSE (50%) 50ML SYRG IV ONE (12:15)
[2021-08-14] MEDS ORDERED: CEFEPIME 1 GM in SODIUM CHL 0.9% 50 ML IV ONE ×2 (12:30→19:45)
[2021-08-14] MEDS ORDERED: VANCOMYCIN 1GM/250ML 250 ML IV ONE ×2 (12:30→20:45)
[2021-08-14 13:46] LABS: Basophils # (auto) 0.1 10 ^3/uL (0-0.2); Basophils % (auto) 0.8 % (0.0-2.0); Eosinophils # (auto) 0 10 ^3/uL (0-0.8); Hematocrit 33.5 % (36.0-46.0); Hemoglobin 11.2 g/dL (12.2-16.2); Lymphocytes # (auto) 0.5 10 ^3/uL (0.4-5.4); Lymphocytes % (auto) 3.5 % (10.0-50.0); Mean Corpuscular Hemoglobin 33.3 pg (28.0-32.0); Mean Corpuscular Hgb Conc. 33.3 g/dL (32.0-36.0); Monocytes # (auto) 0.5 10 ^3/uL (0-1.3); Monocytes % (auto) 4.1 % (0.0-12.0); Neutrophils # (auto) 12.1 10 ^3/uL (1.6-8.6); Neutrophils % (auto) 91.6 % (37.0-80.0); Nucleated Red Blood Cells % 0.5 %; Red Blood Cells 3.35 10^6/uL (4.0-5.20); Red Cell Distribution Width 15.7 % (11.8-14.3); White Blood Cell 13.2 10^3/uL (4.4-10.8)
[2021-08-14 14:06] LABS: BUN/Creatinine Ratio 26.5; Potassium 5.5 mmol/L (3.5-5.1)
[2021-08-14 14:07] LABS: Albumin 2.9 g/dL (3.4-5.0); Calcium 8.7 mg/dL (8.5-10.1); Magnesium 3.3 mg/dL (1.6-2.6)
[2021-08-14 14:12] LABS: Bilirubin, Total 4.6 mg/dL (0.2-1.0); Total Protein 5.8 g/dL (6.4-8.2)
[2021-08-14] MEDS ORDERED: IOHEXOL 350 MG/ML 100ML IJ ONE (14:18)
[2021-08-14 14:37] LABS: Lactic Acid w/Reflex 11.2 mmol/L (0.4-2.0)
[2021-08-14] MEDS ORDERED: ENOXAPARIN SOD 100 MG/1 ML SYRINGE SC ONE (15:15)
[2021-08-14] MEDS ORDERED: SODIUM ZIRCONIUM CYCL 10 GM PAK PO ONE (16:45)
[2021-08-14] MEDS ORDERED: NITROGLYCERIN 0.4 MG SL TAB SL PRN (17:15)
[2021-08-14] MEDS ORDERED: MORPHINE SULFATE INJECTION 2 MG/ML SYRG IV PRN (17:15)
[2021-08-14] MEDS ORDERED: DEXTROSE (50%) 50ML SYRG IV PRN ×2 (17:15→19:45)
[2021-08-14 18:07] LABS: INR 1.5 (0.9-1.15)
[2021-08-14] MEDS ORDERED: SUCRALFATE 1 GM/10 ML ORAL SUSP PO ONE (19:45)
[2021-08-14] MEDS ORDERED: HYDROcodone-ACET 5/325MG TAB PO PRN (19:45)
[2021-08-14] MEDS ORDERED: PANTOPRAZOLE 40 MG/10 ML VIAL INJ IV ONE (19:45)
[2021-08-14] MEDS ORDERED: hydrALAZINE HCL 20 MG/ML VL IV PRN (19:45)
[2021-08-14] MEDS ORDERED: LACTULOSE 20Gm/30ML SOLN PO PRN (19:45)
[2021-08-14] MEDS ORDERED: IPRATROPIUM BROM 0.5 MG/2.5ML INH SOL NEB ONE (19:45)
[2021-08-14] MEDS ORDERED: MULTIPLE VITAMINS W/ MINERALS TAB PO ONE (19:45)
[2021-08-14] MEDS ORDERED: DOCUSATE SOD 100 MG CAP PO PRN (19:45)
[2021-08-14] MEDS ORDERED: HYDROcodone-ACET 5/325MG TAB PO ONE (19:45)
[2021-08-14] MEDS ORDERED: VANCOMYCIN PER PHARMACY 0 MG IV SCH (19:45)
[2021-08-14] MEDS ORDERED: LORazepam 0.5 MG TAB PO PRN (19:45)
[2021-08-14] MEDS ORDERED: ONDANSETRON HCL 4 MG/2 ML VIAL IV PRN (19:45)
[2021-08-14] MEDS ORDERED: FERROUS SULFATE 325mg EC TAB PO ONE (19:45)
[2021-08-14] MEDS ORDERED: IPRATROPIUM BROM 0.5 MG/2.5ML INH SOL NEB PRN (20:00)
[2021-08-14 20:43] LABS: INR 1.71 (0.9-1.15); Partial Thromboplastin Time 43.6 sec (23.6-33.0)
[2021-08-14] MEDS ORDERED: dilTIAZem 25 MG/5 ML VIAL IV ONE (21:00)
[2021-08-14] MEDS: ATORVASTATIN 20 MG TAB PO SCH (21:57)
[2021-08-14] MEDS: SUCRALFATE 1 GM/10 ML ORAL SUSP PO SCH (22:00)
[2021-08-14] MEDS ORDERED: IPRATROPIUM BROM 0.5 MG/2.5ML INH SOL NEB SCH (22:00)
[2021-08-14] MEDS ORDERED: InsuLIN REG 1unit/0.01ml Soln (100units/ml) SC SCH ×2 (22:00)
[2021-08-14] MEDS: ACCU-CHEK COMFORT CURVE STRIP VI SCH ×2 (22:00→22:19)
[2021-08-14] MEDS ORDERED: ACETYLCYSTEINE 10 %(100MG/ML) SOL 4ML NEB SCH (22:00)
[2021-08-14 22:26] LABS: Basophils # (auto) 0.1 10 ^3/uL (0-0.2); Basophils % (auto) 0.7 % (0.0-2.0); Eosinophils # (auto) 0 10 ^3/uL (0-0.8); Hemoglobin 11.7 g/dL (12.2-16.2); Lymphocytes # (auto) 0.6 10 ^3/uL (0.4-5.4); Lymphocytes % (auto) 4.3 % (10.0-50.0); Mean Corpuscular Hemoglobin 33.5 pg (28.0-32.0); Mean Corpuscular Hgb Conc. 34.4 g/dL (32.0-36.0); Mean Corpuscular Volume 97.3 fL (80.0-100.0); Monocytes # (auto) 0.3 10 ^3/uL (0-1.3); Monocytes % (auto) 2.4 % (0.0-12.0); Neutrophils % (auto) 92.6 % (37.0-80.0); Nucleated Red Blood Cells % 1.1 %; Red Blood Cells 3.49 10^6/uL (4.0-5.20); Red Cell Distribution Width 15.5 % (11.8-14.3)
[2021-08-14 22:31] LABS: Albumin 3.1 g/dL (3.4-5.0); Calcium 8.7 mg/dL (8.5-10.1); Potassium 4.8 mmol/L (3.5-5.1)
[2021-08-14 22:36] LABS: BUN/Creatinine Ratio 30.8; Bilirubin, Total 3.9 mg/dL (0.2-1.0); Total Protein 6.2 g/dL (6.4-8.2)
[2021-08-15] VITALS (24 sets, daily range): BP systolic 87–150; BP diastolic 46–119
[2021-08-15 03:40] LABS: Urine Bacteria FEW /hpf (None Seen); Urine Blood Negative /uL (Negative); Urine Budding Yeast MODERATE /hpf (None Seen); Urine Hyaline Cast FEW /lpf (0 - 2); Urine Mucus FEW (None Seen); Urine Specific Gravity 1.038 (1.001-1.035); Urine WBC 8 /hpf (0 - 5)
[2021-08-15 04:55] LABS: Calcium 8.7 mg/dL (8.5-10.1); Magnesium 2.7 mg/dL (1.6-2.6); Potassium 4.6 mmol/L (3.5-5.1)
[2021-08-15] MEDS: CEFEPIME 1 GM in SODIUM CHL 0.9% 50 ML IV SCH ×3 (04:55→21:24)
[2021-08-15] MEDS: MORPHINE SULFATE INJECTION 2 MG/ML SYRG IV PRN ×2 (04:55→21:26)
[2021-08-15 04:56] LABS: Basophils # (auto) 0 10 ^3/uL (0-0.2); Basophils % (auto) 0.1 % (0.0-2.0); Eosinophils # (auto) 0 10 ^3/uL (0-0.8); Hematocrit 34.3 % (36.0-46.0); Hemoglobin 11.9 g/dL (12.2-16.2); Lymphocytes # (auto) 0.7 10 ^3/uL (0.4-5.4); Lymphocytes % (auto) 4.6 % (10.0-50.0); Mean Corpuscular Hemoglobin 33.4 pg (28.0-32.0); Mean Corpuscular Hgb Conc. 34.7 g/dL (32.0-36.0); Mean Corpuscular Volume 96.1 fL (80.0-100.0); Monocytes # (auto) 0.4 10 ^3/uL (0-1.3); Monocytes % (auto) 2.7 % (0.0-12.0); Neutrophils # (auto) 13.3 10 ^3/uL (1.6-8.6); Neutrophils % (auto) 92.6 % (37.0-80.0); Nucleated Red Blood Cells % 1.2 %; Red Blood Cells 3.57 10^6/uL (4.0-5.20); Red Cell Distribution Width 15.6 % (11.8-14.3); White Blood Cell 14.4 10^3/uL (4.4-10.8)
[2021-08-15 05:04] LABS: BUN/Creatinine Ratio 32.7; Bilirubin, Total 3.9 mg/dL (0.2-1.0); CRP High Sensitivity 10.3 mg/dL (< 0.3); Phosphorus 4.4 mg/dL (2.5-4.90); Total Protein 5.9 g/dL (6.4-8.2); Uric Acid 9.4 mg/dL (2.6-6.0)
[2021-08-15 05:10] LABS: Thyroid Stimulating Hormone 2.52 uIU/mL (0.358-3.74)
[2021-08-15 05:30] LABS: INR 1.28 (0.9-1.15)
[2021-08-15] MEDS ORDERED: dilTIAZem 25 MG/5 ML VIAL IV ONE ×2 (05:30→05:45)
[2021-08-15] MEDS: FUROSEMIDE 20 MG/2 ML VIAL IV SCH ×2 (06:32→19:26)
[2021-08-15] MEDS: ACCU-CHEK COMFORT CURVE STRIP VI SCH ×4 (06:38→18:00)
[2021-08-15] MEDS: InsuLIN REG 1unit/0.01ml Soln (100units/ml) SC SCH ×3 (06:39→18:00)
[2021-08-15] MEDS: SUCRALFATE 1 GM/10 ML ORAL SUSP PO SCH ×2 (06:39→12:29)
[2021-08-15] MEDS ORDERED: InsuLIN REG 1unit/0.01ml Soln (100units/ml) SC SCH (07:00)
[2021-08-15] MEDS ORDERED: ASPirin 81 mg TAB PO SCH (10:00)
[2021-08-15] MEDS: APIXABAN 5 MG TAB PO SCH ×2 (10:34→21:24)
[2021-08-15] MEDS: MULTIPLE VITAMINS W/ MINERALS TAB PO SCH (10:34)
[2021-08-15] MEDS: CYANOCOBALAMIN 500 MCG TAB PO SCH (10:35)
[2021-08-15] MEDS: FERROUS SULFATE 325mg EC TAB PO SCH ×2 (10:35→12:00)
[2021-08-15] MEDS: CHOLECALCIFEROL (VITD3) 2,000 UNIT CAP/TAB PO SCH (10:35)
[2021-08-15] MEDS: THIAMINE HCL 100 MG TAB PO SCH (10:36)
[2021-08-15] MEDS: PANTOPRAZOLE 40 MG/10 ML VIAL INJ IV SCH (10:36)
[2021-08-15] MEDS ORDERED: PHENYLEPHRINE IV 250 ML IV SCH (11:45)
[2021-08-15] MEDS ORDERED: DIGOXIN (250MCG/ML) 2 ML AMPULE IV ONE ×2 (11:45→12:45)
[2021-08-15] MEDS ORDERED: DEXTROSE (50%) 50ML SYRG IV PRN (15:30)
[2021-08-15] MEDS: Glucerna Carbsteady SHAKE Vanilla 8oz PO SCH (18:00)
[2021-08-15] MEDS: AMIODARONE HCL 200 MG TAB PO SCH (21:23)
[2021-08-15] MEDS: ATORVASTATIN 20 MG TAB PO SCH (21:24)
[2021-08-16] VITALS (7 sets, daily range): BP systolic 118–153; BP diastolic 63–85
[2021-08-16] MEDS: ACCU-CHEK COMFORT CURVE STRIP VI SCH ×4 (00:06→17:32)
[2021-08-16 04:31] LABS: Basophils # (auto) 0 10 ^3/uL (0-0.2); Basophils % (auto) 0.1 % (0.0-2.0); Eosinophils # (auto) 0 10 ^3/uL (0-0.8); Hemoglobin 11.5 g/dL (12.2-16.2); Lymphocytes # (auto) 0.5 10 ^3/uL (0.4-5.4); Lymphocytes % (auto) 3.9 % (10.0-50.0); Mean Corpuscular Hemoglobin 33.9 pg (28.0-32.0); Monocytes # (auto) 0.6 10 ^3/uL (0-1.3); Monocytes % (auto) 4.6 % (0.0-12.0); Neutrophils # (auto) 11.5 10 ^3/uL (1.6-8.6); Neutrophils % (auto) 91.4 % (37.0-80.0); Nucleated Red Blood Cells % 0.7 %; Red Cell Distribution Width 15.6 % (11.8-14.3); White Blood Cell 12.6 10^3/uL (4.4-10.8)
[2021-08-16] MEDS: MORPHINE SULFATE INJECTION 2 MG/ML SYRG IV PRN ×2 (05:06→17:32)
[2021-08-16 05:07] LABS: Albumin 2.6 g/dL (3.4-5.0); Calcium 8.2 mg/dL (8.5-10.1); Potassium 4.2 mmol/L (3.5-5.1)
[2021-08-16 05:09] LABS: BUN/Creatinine Ratio 37.4
[2021-08-16 05:13] LABS: Bilirubin, Total 2.5 mg/dL (0.2-1.0); Total Protein 5.2 g/dL (6.4-8.2)
[2021-08-16] MEDS: CEFEPIME 1 GM in SODIUM CHL 0.9% 50 ML IV SCH ×2 (05:15→13:52)
[2021-08-16] MEDS: InsuLIN REG 1unit/0.01ml Soln (100units/ml) SC SCH ×4 (10:28→17:32)
[2021-08-16] MEDS: FUROSEMIDE 20 MG/2 ML VIAL IV SCH (10:28)
[2021-08-16] MEDS: PANTOPRAZOLE 40 MG/10 ML VIAL INJ IV SCH (10:29)
[2021-08-16] MEDS: Glucerna Carbsteady SHAKE Vanilla 8oz PO SCH ×3 (10:29→17:32)
[2021-08-16] MEDS: DIGOXIN 0.25 MG TAB PO SCH (10:29)
[2021-08-16] MEDS: MULTIPLE VITAMINS W/ MINERALS TAB PO SCH (10:29)
[2021-08-16] MEDS: CHOLECALCIFEROL (VITD3) 2,000 UNIT CAP/TAB PO SCH (10:29)
[2021-08-16] MEDS: CYANOCOBALAMIN 500 MCG TAB PO SCH (10:30)
[2021-08-16] MEDS: AMIODARONE HCL 200 MG TAB PO SCH ×2 (10:30→22:38)
[2021-08-16] MEDS: THIAMINE HCL 100 MG TAB PO SCH (10:30)
[2021-08-16] MEDS: APIXABAN 5 MG TAB PO SCH ×2 (10:30→22:39)
[2021-08-16] MEDS: metroNIDAZOLE 500 MG TAB PO SCH ×2 (14:00→22:39)
[2021-08-17] MEDS: InsuLIN REG 1unit/0.01ml Soln (100units/ml) SC SCH ×4 (00:55→17:12)
[2021-08-17] MEDS: ACCU-CHEK COMFORT CURVE STRIP VI SCH ×4 (00:55→17:14)
[2021-08-17 05:00] VITALS: BP 162/99
[2021-08-17 06:40] LABS: Chloride 98 mmol/L (98-107); Potassium 3.1 mmol/L (3.5-5.1); Sodium 134 mmol/L (136-145)
[2021-08-17] MEDS: metroNIDAZOLE 500 MG TAB PO SCH ×2 (06:48→13:29)
[2021-08-17 06:55] LABS: Alanine Aminotransferase 300 U/L (13-56); Albumin 2.9 g/dL (3.4-5.0); Alkaline Phosphatase 346 U/L (45-117); Anion Gap 9 (5-15); Aspartate Aminotransferase 132 U/L (15-37); BUN/Creatinine Ratio 35.5; Bilirubin, Total 2.5 mg/dL (0.2-1.0); Blood Urea Nitrogen 38 mg/dL (7-18); Calcium 8.5 mg/dL (8.5-10.1); Carbon Dioxide 27 mmol/L (21-32); GFR African American 64 mL/min; GFR Non-African American 53 mL/min; Glucose 101 mg/dL (74-106); Total Protein 6.1 g/dL (6.4-8.2)
[2021-08-17 07:10] LABS: Basophils # (auto) 0.1 10 ^3/uL (0-0.2); Basophils % (auto) 0.5 % (0.0-2.0); Eosinophils # (auto) 0.1 10 ^3/uL (0-0.8); Eosinophils % (auto) 0.7 % (0.0-7.0); Hematocrit 36.6 % (36.0-46.0); Hemoglobin 12.8 g/dL (12.2-16.2); Lymphocytes # (auto) 0.4 10 ^3/uL (0.4-5.4); Lymphocytes % (auto) 3.6 % (10.0-50.0); Mean Corpuscular Hemoglobin 33.4 pg (28.0-32.0); Mean Corpuscular Hgb Conc. 35.1 g/dL (32.0-36.0); Mean Corpuscular Volume 95.3 fL (80.0-100.0); Monocytes # (auto) 0.5 10 ^3/uL (0-1.3); Monocytes % (auto) 3.8 % (0.0-12.0); Neutrophils # (auto) 10.9 10 ^3/uL (1.6-8.6); Neutrophils % (auto) 91.4 % (37.0-80.0); Nucleated Red Blood Cells % 1.1 %; Red Blood Cells 3.84 10^6/uL (4.0-5.20); Red Cell Distribution Width 15.5 % (11.8-14.3); White Blood Cell 11.9 10^3/uL (4.4-10.8)
[2021-08-17] MEDS: Glucerna Carbsteady SHAKE Vanilla 8oz PO SCH ×3 (08:00→17:14)
[2021-08-17 09:00] VITALS: BP 151/75
[2021-08-17] MEDS ORDERED: CEFEPIME 1 GM in SODIUM CHL 0.9% 50 ML IV SCH (10:00)
[2021-08-17] MEDS ORDERED: PANTOPRAZOLE 40 MG TAB PO SCH (10:00)
[2021-08-17] MEDS: THIAMINE HCL 100 MG TAB PO SCH (10:02)
[2021-08-17] MEDS: FUROSEMIDE 20 MG/2 ML VIAL IV SCH (10:02)
[2021-08-17] MEDS: AMIODARONE HCL 200 MG TAB PO SCH ×2 (10:02→22:20)
[2021-08-17] MEDS: MULTIPLE VITAMINS W/ MINERALS TAB PO SCH (10:03)
[2021-08-17] MEDS: APIXABAN 5 MG TAB PO SCH ×2 (10:03→22:20)
[2021-08-17] MEDS: FLORASTOR (S. BOULARDII) 250 MG CAP PO SCH (10:03)
[2021-08-17] MEDS: CYANOCOBALAMIN 500 MCG TAB PO SCH ×2 (10:03→10:49)
[2021-08-17] MEDS: CHOLECALCIFEROL (VITD3) 2,000 UNIT CAP/TAB PO SCH (10:04)
[2021-08-17] MEDS: ACETAMINOPHEN 325 MG TAB PO PRN ×2 (10:12→16:05)
[2021-08-17 16:39] VITALS: BP 131/78
[2021-08-17] MEDS: SUCRALFATE 1 GM/10 ML ORAL SUSP PO SCH ×2 (17:12→22:19)
[2021-08-17 22:00] VITALS: BP 121/71
[2021-08-17] MEDS: PANTOPRAZOLE 40 MG/10 ML VIAL INJ IV SCH (22:19)
[2021-08-18] MEDS: ACCU-CHEK COMFORT CURVE STRIP VI SCH ×5 (00:40→23:24)
[2021-08-18] MEDS: InsuLIN REG 1unit/0.01ml Soln (100units/ml) SC SCH ×5 (00:40→23:29)
[2021-08-18] MEDS ORDERED: MELA3TAB27 PO (04:23)
[2021-08-18 05:01] VITALS: BP 132/69
[2021-08-18] MEDS: SUCRALFATE 1 GM/10 ML ORAL SUSP PO SCH ×4 (06:16→22:25)
[2021-08-18 06:55] LABS: Basophils # (auto) 0 10 ^3/uL (0-0.2); Basophils % (auto) 0.1 % (0.0-2.0); Lymphocytes # (auto) 0.4 10 ^3/uL (0.4-5.4); Monocytes # (auto) 0.4 10 ^3/uL (0-1.3); Monocytes % (auto) 4.9 % (0.0-12.0); Nucleated Red Blood Cells % 0.2 %
[2021-08-18 06:56] LABS: Eosinophils # (auto) 0 10 ^3/uL (0-0.8); Eosinophils % (auto) 0.5 % (0.0-7.0); Hematocrit 32.5 % (36.0-46.0); Hemoglobin 11.7 g/dL (12.2-16.2); Lymphocytes % (auto) 4.9 % (10.0-50.0); Mean Corpuscular Hgb Conc. 36.1 g/dL (32.0-36.0); Mean Corpuscular Volume 94.1 fL (80.0-100.0); Neutrophils # (auto) 8.2 10 ^3/uL (1.6-8.6); Neutrophils % (auto) 89.6 % (37.0-80.0); Red Blood Cells 3.45 10^6/uL (4.0-5.20); Red Cell Distribution Width 15.2 % (11.8-14.3); White Blood Cell 9.1 10^3/uL (4.4-10.8)
[2021-08-18 07:09] LABS: Albumin 2.6 g/dL (3.4-5.0); BUN/Creatinine Ratio 36.2; Calcium 8.2 mg/dL (8.5-10.1); Magnesium 2.1 mg/dL (1.6-2.6); Potassium 3.3 mmol/L (3.5-5.1)
[2021-08-18 07:14] LABS: Total Protein 5.4 g/dL (6.4-8.2)
[2021-08-18 09:00] VITALS: BP 128/76
[2021-08-18] MEDS: Glucerna Carbsteady SHAKE Vanilla 8oz PO SCH ×3 (09:22→17:40)
[2021-08-18] MEDS: AMIODARONE HCL 200 MG TAB PO SCH ×2 (09:59→22:25)
[2021-08-18] MEDS: PANTOPRAZOLE 40 MG/10 ML VIAL INJ IV SCH ×2 (09:59→22:25)
[2021-08-18] MEDS: THIAMINE HCL 100 MG TAB PO SCH (09:59)
[2021-08-18] MEDS: APIXABAN 5 MG TAB PO SCH ×2 (10:00→22:25)
[2021-08-18] MEDS: CHOLECALCIFEROL (VITD3) 2,000 UNIT CAP/TAB PO SCH (10:00)
[2021-08-18] MEDS: FLORASTOR (S. BOULARDII) 250 MG CAP PO SCH (10:00)
[2021-08-18] MEDS: FLUCONAZOLE 100 MG TAB PO SCH (10:00)
[2021-08-18] MEDS: MULTIPLE VITAMINS W/ MINERALS TAB PO SCH (10:00)
[2021-08-18] MEDS: CYANOCOBALAMIN 500 MCG TAB PO SCH (10:01)
[2021-08-18] MEDS: POTASSIUM CHL 20 Meq TABLET PO SCH (10:01)
[2021-08-18] MEDS: FUROSEMIDE 20 MG/2 ML VIAL IV SCH (10:17)
[2021-08-18 13:00] VITALS: BP 144/81
[2021-08-18 17:00] VITALS: BP 153/75
[2021-08-18 22:00] VITALS: BP 137/71
[2021-08-19 05:00] VITALS: BP 132/68
[2021-08-19] MEDS: ACCU-CHEK COMFORT CURVE STRIP VI SCH ×4 (05:59→23:17)
[2021-08-19] MEDS: SUCRALFATE 1 GM/10 ML ORAL SUSP PO SCH ×4 (05:59→22:00)
[2021-08-19] MEDS: InsuLIN REG 1unit/0.01ml Soln (100units/ml) SC SCH ×4 (06:00→23:17)
[2021-08-19 06:49] LABS: Basophils # (auto) 0 10 ^3/uL (0-0.2); Eosinophils # (auto) 0.1 10 ^3/uL (0-0.8); Eosinophils % (auto) 0.8 % (0.0-7.0); Lymphocytes # (auto) 0.5 10 ^3/uL (0.4-5.4); Lymphocytes % (auto) 5.4 % (10.0-50.0)
[2021-08-19 06:51] LABS: Albumin 2.5 g/dL (3.4-5.0); Basophils % (auto) 0.1 % (0.0-2.0); Bilirubin, Direct 0.7 mg/dL (0-0.2); Bilirubin, Total 1.7 mg/dL (0.2-1.0); Hematocrit 32.4 % (36.0-46.0); Hemoglobin 11.6 g/dL (12.2-16.2); Mean Corpuscular Hemoglobin 34.1 pg (28.0-32.0); Mean Corpuscular Hgb Conc. 35.7 g/dL (32.0-36.0); Mean Corpuscular Volume 95.8 fL (80.0-100.0); Monocytes # (auto) 0.5 10 ^3/uL (0-1.3); Monocytes % (auto) 5.6 % (0.0-12.0); Neutrophils % (auto) 88.1 % (37.0-80.0); Nucleated Red Blood Cells % 0.2 %; Red Blood Cells 3.38 10^6/uL (4.0-5.20); Red Cell Distribution Width 15.9 % (11.8-14.3); Total Protein 5.3 g/dL (6.4-8.2); White Blood Cell 9.1 10^3/uL (4.4-10.8)
[2021-08-19] MEDS: Glucerna Carbsteady SHAKE Vanilla 8oz PO SCH ×3 (08:38→18:19)
[2021-08-19] MEDS: FUROSEMIDE 20 MG/2 ML VIAL IV SCH (08:40)
[2021-08-19] MEDS: PANTOPRAZOLE 40 MG/10 ML VIAL INJ IV SCH (08:40)
[2021-08-19] MEDS: FLUCONAZOLE 100 MG TAB PO SCH (08:41)
[2021-08-19] MEDS: AMIODARONE HCL 200 MG TAB PO SCH ×2 (08:41→22:00)
[2021-08-19] MEDS: THIAMINE HCL 100 MG TAB PO SCH (08:41)
[2021-08-19] MEDS: FLORASTOR (S. BOULARDII) 250 MG CAP PO SCH (08:42)
[2021-08-19] MEDS: POTASSIUM CHL 20 Meq TABLET PO SCH (08:45)
[2021-08-19] MEDS: MULTIPLE VITAMINS W/ MINERALS TAB PO SCH (08:45)
[2021-08-19] MEDS: CHOLECALCIFEROL (VITD3) 2,000 UNIT CAP/TAB PO SCH (08:46)
[2021-08-19] MEDS: APIXABAN 2.5 MG TAB PO SCH ×2 (08:47→22:00)
[2021-08-19 09:00] VITALS: BP 142/75
[2021-08-19] MEDS: DIGOXIN 0.25 MG TAB PO SCH (10:00)
[2021-08-19 12:03] LABS: Calcium 8.2 mg/dL (8.5-10.1); Potassium 4.2 mmol/L (3.5-5.1)
[2021-08-19 12:05] LABS: BUN/Creatinine Ratio 36.4
[2021-08-19 13:00] VITALS: BP 133/76
[2021-08-19] MEDS: CYANOCOBALAMIN 500 MCG TAB PO SCH (15:00)
[2021-08-19 17:00] VITALS: BP 149/95
[2021-08-19] MEDS ORDERED: METOPROLOL SUCCINATE XL 50 MG TAB PO ONE (18:45)
[2021-08-19 21:15] VITALS: BP 137/79
[2021-08-19] MEDS: METOPROLOL TARTRATE 25 MG TAB PO SCH (22:00)
[2021-08-19] MEDS: PANTOPRAZOLE 40 MG TAB PO SCH (22:00)
[2021-08-19] MEDS: SOTALOL HCL 80 MG TAB PO SCH (22:00)
[2021-08-20 05:18] VITALS: BP 114/89
[2021-08-20] MEDS: ACCU-CHEK COMFORT CURVE STRIP VI SCH ×4 (06:00→23:08)
[2021-08-20] MEDS: InsuLIN REG 1unit/0.01ml Soln (100units/ml) SC SCH ×4 (06:00→23:20)
[2021-08-20 06:25] LABS: Albumin 2.6 g/dL (3.4-5.0); Bilirubin, Direct 0.7 mg/dL (0-0.2); Bilirubin, Total 1.7 mg/dL (0.2-1.0); Total Protein 5.4 g/dL (6.4-8.2)
[2021-08-20] MEDS: SUCRALFATE 1 GM/10 ML ORAL SUSP PO SCH ×4 (06:36→22:00)
[2021-08-20 08:00] VITALS: BP 134/62
[2021-08-20] MEDS: Glucerna Carbsteady SHAKE Vanilla 8oz PO SCH ×3 (08:55→17:07)
[2021-08-20] MEDS: FUROSEMIDE 20 MG/2 ML VIAL IV SCH (08:57)
[2021-08-20] MEDS: THIAMINE HCL 100 MG TAB PO SCH (08:59)
[2021-08-20] MEDS: SOTALOL HCL 80 MG TAB PO SCH ×2 (09:00→22:00)
[2021-08-20] MEDS: AMIODARONE HCL 200 MG TAB PO SCH ×2 (09:01→22:00)
[2021-08-20] MEDS: FLUCONAZOLE 100 MG TAB PO SCH (09:02)
[2021-08-20] MEDS: APIXABAN 2.5 MG TAB PO SCH ×2 (09:03→22:00)
[2021-08-20] MEDS: FLORASTOR (S. BOULARDII) 250 MG CAP PO SCH (09:04)
[2021-08-20] MEDS: METOPROLOL TARTRATE 25 MG TAB PO SCH ×2 (09:05→22:00)
[2021-08-20] MEDS: MULTIPLE VITAMINS W/ MINERALS TAB PO SCH (09:07)
[2021-08-20] MEDS: CYANOCOBALAMIN 500 MCG TAB PO SCH (09:08)
[2021-08-20] MEDS: PANTOPRAZOLE 40 MG TAB PO SCH ×2 (09:08→22:00)
[2021-08-20] MEDS: CHOLECALCIFEROL (VITD3) 2,000 UNIT CAP/TAB PO SCH (09:09)
[2021-08-20] MEDS: POTASSIUM CHL 20 Meq TABLET PO SCH (09:11)
[2021-08-20 12:00] VITALS: BP 131/74
[2021-08-20 16:00] VITALS: BP 143/85
[2021-08-20 21:52] VITALS: BP 132/80
[2021-08-21 04:59] VITALS: BP 146/72
[2021-08-21] MEDS: ACCU-CHEK COMFORT CURVE STRIP VI SCH ×3 (06:00→17:27)
[2021-08-21] MEDS: InsuLIN REG 1unit/0.01ml Soln (100units/ml) SC SCH ×3 (06:00→17:34)
[2021-08-21] MEDS: SUCRALFATE 1 GM/10 ML ORAL SUSP PO SCH ×3 (06:46→17:30)
[2021-08-21] MEDS: Glucerna Carbsteady SHAKE Vanilla 8oz PO SCH ×3 (08:00→17:27)
[2021-08-21 09:00] VITALS: BP 124/71
[2021-08-21] MEDS ORDERED: FUROSEMIDE 20 MG TAB PO SCH (10:00)
[2021-08-21] MEDS ORDERED: POTASSIUM CHL 20 Meq TABLET PO SCH (10:00)
[2021-08-21] MEDS: THIAMINE HCL 100 MG TAB PO SCH (10:07)
[2021-08-21] MEDS: SOTALOL HCL 80 MG TAB PO SCH (10:08)
[2021-08-21] MEDS: AMIODARONE HCL 200 MG TAB PO SCH (10:09)
[2021-08-21] MEDS: FLUCONAZOLE 100 MG TAB PO SCH (10:09)
[2021-08-21] MEDS: FLORASTOR (S. BOULARDII) 250 MG CAP PO SCH (10:10)
[2021-08-21] MEDS: APIXABAN 2.5 MG TAB PO SCH (10:10)
[2021-08-21] MEDS: DIGOXIN 0.25 MG TAB PO SCH (10:11)
[2021-08-21] MEDS: METOPROLOL TARTRATE 25 MG TAB PO SCH (10:13)
[2021-08-21] MEDS: MULTIPLE VITAMINS W/ MINERALS TAB PO SCH (10:13)
[2021-08-21] MEDS: PANTOPRAZOLE 40 MG TAB PO SCH (10:13)
[2021-08-21] MEDS: CYANOCOBALAMIN 500 MCG TAB PO SCH (10:14)
[2021-08-21] MEDS: CHOLECALCIFEROL (VITD3) 2,000 UNIT CAP/TAB PO SCH (10:14)
[2021-08-21 13:00] VITALS: BP 137/76
[2021-08-21 17:00] VITALS: BP 142/87
== END 2021-08-21 18:32 | DRG 189 ==
LOC: EDBD 11:57 → ER 11:57 → TELE 17:10 → ICU WEST 18:33 → TELE-WESTW 08-16 14:22
PROVIDERS: ADMIT Hospitalist; ATTEND Internal Medicine
PROC: 5A09357 Assistance with Respiratory Ventilation, Less than 24 Consecutive Hours, Continuous Positive Airway Pressure (ICD-10-PCS; 2021-08-14)
PROC: 05HD33Z Insertion of Infusion Device into Right Cephalic Vein, Percutaneous Approach (ICD-10-PCS; principal; 2021-08-15)
PROC: B54MZZA Ultrasonography of Right Upper Extremity Veins, Guidance (ICD-10-PCS; 2021-08-15)
DX: J96.01 Acute respiratory failure with hypoxia (principal); N17.0 Acute kidney failure with tubular necrosis; E43 Unspecified severe protein-calorie malnutrition; K72.00 Acute and subacute hepatic failure without coma; G92.8 Other toxic encephalopathy; I50.21 Acute systolic (congestive) heart failure; I13.0 Hypertensive heart and chronic kidney disease with heart failure and stage 1 through stage 4 chronic kidney disease, or unspecified chronic kidney disease; I48.11 Longstanding persistent atrial fibrillation; B37.49 Other urogenital candidiasis; D68.59 Other primary thrombophilia; Z68.1 Body mass index [BMI] 19.9 or less, adult; I27.82 Chronic pulmonary embolism; Z66 Do not resuscitate; Z20.822 Contact with and (suspected) exposure to COVID-19; E87.5 Hyperkalemia; E11.22 Type 2 diabetes mellitus with diabetic chronic kidney disease; K21.9 Gastro-esophageal reflux disease without esophagitis; K29.70 Gastritis, unspecified, without bleeding; K76.1 Chronic passive congestion of liver; R62.7 Adult failure to thrive; E11.649 Type 2 diabetes mellitus with hypoglycemia without coma; F03.90 Unspecified dementia, unspecified severity, without behavioral disturbance, psychotic disturbance, mood disturbance, and anxiety; F43.9 Reaction to severe stress, unspecified; I49.5 Sick sinus syndrome; N18.32 Chronic kidney disease, stage 3b; Z79.01 Long term (current) use of anticoagulants; Z79.899 Other long term (current) drug therapy; Z82.49 Family history of ischemic heart disease and other diseases of the circulatory system; Z87.81 Personal history of (healed) traumatic fracture; Z87.891 Personal history of nicotine dependence; Z90.710 Acquired absence of both cervix and uterus; Z95.810 Presence of automatic (implantable) cardiac defibrillator; Z98.84 Bariatric surgery status; Z90.49 Acquired absence of other specified parts of digestive tract
CPT/HCPCS: 36415; 36600; 71045; 71275; 80048; 80053; 80061; 80076; 80162; 80202; 81001; 82270; 82550; 82728; 82805; 82962; 83036; 83605; 83615; 83690; 83735; 83880; 84100; 84443; 84484; 84550; 85025; 85379; 85610; 85652; 85730; 86141; 86850; 86900; 86901; 87040; 87081; 87086; 87088; 87186; 87493; 93005; 93306; 93970; 94640; 96365; 96367; 96368; 96372; 96375; 97110; 97116; 97530; 99291; C9113; G0378; J1815

== ENCOUNTER 2021-08-22 15:04 | Inpatient (IN) | payer MEDICARE, OTHER ==
[~2021-08-22] VITALS: Ht 157.5 cm; Wt 45.3 kg
[~2021-08-22 15:04] MED LIST changes: +MELA3TAB27 PO
[2021-08-22 17:13] LABS: Basophils # (auto) 0 10 ^3/uL (0-0.2); Basophils % (auto) 0.3 % (0.0-2.0); Eosinophils # (auto) 0 10 ^3/uL (0-0.8); Eosinophils % (auto) 0.2 % (0.0-7.0); Hematocrit 37.4 % (36.0-46.0); Hemoglobin 12.8 g/dL (12.2-16.2); Lymphocytes # (auto) 0.7 10 ^3/uL (0.4-5.4); Lymphocytes % (auto) 4.3 % (10.0-50.0); Mean Corpuscular Hemoglobin 33.5 pg (28.0-32.0); Mean Corpuscular Hgb Conc. 34.3 g/dL (32.0-36.0); Mean Corpuscular Volume 97.5 fL (80.0-100.0); Monocytes # (auto) 0.4 10 ^3/uL (0-1.3); Monocytes % (auto) 2.8 % (0.0-12.0); Neutrophils # (auto) 14.8 10 ^3/uL (1.6-8.6); Neutrophils % (auto) 92.4 % (37.0-80.0); Nucleated Red Blood Cells % 0.1 %; Red Blood Cells 3.83 10^6/uL (4.0-5.20); Red Cell Distribution Width 15.9 % (11.8-14.3)
[2021-08-22 17:19] LABS: Calcium 8.3 mg/dL (8.5-10.1); Lactic Acid w/Reflex 7.9 mmol/L (0.4-2.0)
[2021-08-22 17:22] LABS: BUN/Creatinine Ratio 37.5; Bilirubin, Total 2.2 mg/dL (0.2-1.0); Total Protein 6.3 g/dL (6.4-8.2)
[2021-08-22 17:24] LABS: INR 1.06 (0.9-1.15); Partial Thromboplastin Time 24.6 sec (23.6-33.0)
[2021-08-22] MEDS ORDERED: DEXTROSE (50%) 50ML SYRG IV ONE (18:45)
[2021-08-22] MEDS ORDERED: D5W 5% 1,000 ML IV SCH (18:45)
[2021-08-22] MEDS ORDERED: MORPHINE SULFATE INJECTION 2 MG/ML SYRG IV PRN ×2 (18:45→19:15)
[2021-08-22] MEDS ORDERED: DEXTROSE (50%) 50ML SYRG IV PRN (18:45)
[2021-08-22] MEDS ORDERED: NITROGLYCERIN 0.4 MG SL TAB SL PRN (18:45)
[2021-08-22] MEDS ORDERED: SODIUM CHLORIDE 0.9% 1,000 ML IV ONE (19:00)
[2021-08-22] MEDS ORDERED: D5W/LACTATED RINGERS 1,000 ML IV SCH (19:00)
[2021-08-22 19:08] LABS: Urine Bacteria FEW /hpf (None Seen); Urine Blood 1+ /uL (Negative); Urine Mucus FEW (None Seen); Urine Specific Gravity 1.023 (1.001-1.035); Urine WBC 17 /hpf (0 - 5)
[2021-08-22] MEDS ORDERED: VANCOMYCIN PER PHARMACY 0 MG IV SCH (19:15)
[2021-08-22] MEDS ORDERED: LACTULOSE 20Gm/30ML SOLN PO PRN (19:15)
[2021-08-22] MEDS ORDERED: METOCLOPRAMIDE HCL 5MG/ml INJ 2ml VIAL IV PRN (19:15)
[2021-08-22] MEDS ORDERED: PANTOPRAZOLE 40 MG/10 ML VIAL INJ IV ONE (19:15)
[2021-08-22] MEDS ORDERED: hydrALAZINE HCL 20 MG/ML VL IV PRN (19:15)
[2021-08-22] MEDS ORDERED: DOCUSATE SOD 100 MG CAP PO PRN (19:15)
[2021-08-22] MEDS ORDERED: MEROPENEM 1GM IVPB 100 ML IV ONE (19:15)
[2021-08-22] MEDS ORDERED: B-COMPLEX W/ C & FOLIC ACID(NEPHROVITE TAB) PO ONE (19:15)
[2021-08-22] MEDS ORDERED: IPRATROPIUM BROM 0.5 MG/2.5ML INH SOL NEB PRN (19:15)
[2021-08-22] MEDS ORDERED: IPRATROPIUM BROM 0.5 MG/2.5ML INH SOL NEB ONE (19:15)
[2021-08-22] MEDS ORDERED: VANCOMYCIN 1GM/250ML 250 ML IV ONE (19:45)
[2021-08-22 19:52] LABS: Phosphorus 1.7 mg/dL (2.5-4.90)
[2021-08-22 21:19] VITALS: BP 136/74
[2021-08-22 22:00] VITALS: BP 116/65
[2021-08-22] MEDS: InsuLIN REG 1unit/0.01ml Soln (100units/ml) SC SCH (22:00)
[2021-08-22] MEDS ORDERED: SOTALOL HCL 80 MG TAB PO SCH (22:00)
[2021-08-22] MEDS ORDERED: POTASSIUM CHL 20 Meq TABLET PO SCH (22:00)
[2021-08-22 22:15] VITALS: BP 116/65
[2021-08-22] MEDS: APIXABAN 5 MG TAB PO SCH (23:19)
[2021-08-22] MEDS: MEGESTROL ACETATE 20 MG TAB PO SCH (23:23)
[2021-08-22] MEDS: MAGNESIUM OXIDE 400 MG TAB PO SCH (23:24)
[2021-08-22] MEDS: ACCU-CHEK COMFORT CURVE STRIP VI SCH (23:30)
[2021-08-23 05:00] VITALS: BP 135/70
[2021-08-23 06:00] LABS: Basophils # (auto) 0 10 ^3/uL (0-0.2); Basophils % (auto) 0.1 % (0.0-2.0); Eosinophils # (auto) 0.1 10 ^3/uL (0-0.8); Eosinophils % (auto) 0.5 % (0.0-7.0); Hematocrit 34.3 % (36.0-46.0); Hemoglobin 12.1 g/dL (12.2-16.2); Lymphocytes # (auto) 0.7 10 ^3/uL (0.4-5.4); Lymphocytes % (auto) 6.2 % (10.0-50.0); Mean Corpuscular Hemoglobin 33.6 pg (28.0-32.0); Mean Corpuscular Hgb Conc. 35.4 g/dL (32.0-36.0); Mean Corpuscular Volume 94.9 fL (80.0-100.0); Monocytes # (auto) 0.4 10 ^3/uL (0-1.3); Monocytes % (auto) 3.5 % (0.0-12.0); Neutrophils # (auto) 10.8 10 ^3/uL (1.6-8.6); Neutrophils % (auto) 89.7 % (37.0-80.0); Nucleated Red Blood Cells % 0.2 %; Red Blood Cells 3.61 10^6/uL (4.0-5.20); White Blood Cell 12.1 10^3/uL (4.4-10.8)
[2021-08-23] MEDS ORDERED: FUROSEMIDE 20 MG/2 ML VIAL IV SCH (06:00)
[2021-08-23 06:27] LABS: INR 1.11 (0.9-1.15); Partial Thromboplastin Time 23.4 sec (23.6-33.0)
[2021-08-23 06:35] LABS: Bilirubin, Total 2.1 mg/dL (0.2-1.0); CRP High Sensitivity 1.95 mg/dL (< 0.3); Phosphorus 2.1 mg/dL (2.5-4.90); Total Protein 6.3 g/dL (6.4-8.2)
[2021-08-23] MEDS: InsuLIN REG 1unit/0.01ml Soln (100units/ml) SC SCH ×4 (06:43→21:13)
[2021-08-23] MEDS: ACCU-CHEK COMFORT CURVE STRIP VI SCH ×4 (06:43→21:13)
[2021-08-23 07:03] LABS: Potassium 3.1 mmol/L (3.5-5.1)
[2021-08-23 07:04] LABS: BUN/Creatinine Ratio 38.9; Calcium 8.3 mg/dL (8.5-10.1); Magnesium 1.8 mg/dL (1.6-2.6)
[2021-08-23] MEDS ORDERED: CALCIUM W/VIT D (600MG/400IU) TAB PO SCH (08:00)
[2021-08-23 09:00] VITALS: BP 126/72
[2021-08-23] MEDS ORDERED: MEROPENEM 1GM IVPB 100 ML IV SCH (09:00)
[2021-08-23] MEDS ORDERED: ENOXAPARIN SOD 40 MG/0.4 ML SYRINGE SC SCH (10:00)
[2021-08-23] MEDS ORDERED: PANTOPRAZOLE 40 MG/10 ML VIAL INJ IV SCH (10:00)
[2021-08-23] MEDS ORDERED: ZINC SULFATE 220mg CAP or TAB PO SCH (10:00)
[2021-08-23] MEDS ORDERED: POTASSIUM EFFERVESENT TAB 25 MEQ PO ONE (10:45)
[2021-08-23] MEDS ORDERED: Ensure HIGH Protein Chocolate 8oz Bottle PO SCH (12:00)
[2021-08-23 12:04] VITALS: BP 131/72
[2021-08-23] MEDS: CHOLECALCIFEROL (VITD3) 2,000 UNIT CAP/TAB PO SCH (13:10)
[2021-08-23] MEDS: APIXABAN 5 MG TAB PO SCH ×2 (13:10→21:16)
[2021-08-23] MEDS: B-COMPLEX W/ C & FOLIC ACID(NEPHROVITE TAB) PO SCH (13:10)
[2021-08-23] MEDS: MEGESTROL ACETATE 20 MG TAB PO SCH ×2 (13:10→21:15)
[2021-08-23] MEDS: MAGNESIUM OXIDE 400 MG TAB PO SCH ×2 (13:11→21:15)
[2021-08-23 17:00] VITALS: BP 100/62
[2021-08-23] MEDS: Ensure HIGH Protein Chocolate 8oz Bottle PO SCH (18:48)
[2021-08-23] MEDS: SOTALOL HCL 80 MG TAB PO SCH (21:25)
[2021-08-23 22:00] VITALS: BP 128/63
[2021-08-24 06:16] LABS: Basophils # (auto) 0 10 ^3/uL (0-0.2); Basophils % (auto) 0.1 % (0.0-2.0); Eosinophils # (auto) 0.1 10 ^3/uL (0-0.8); Eosinophils % (auto) 0.7 % (0.0-7.0); Hematocrit 34.7 % (36.0-46.0); Hemoglobin 12.1 g/dL (12.2-16.2); Lymphocytes # (auto) 0.6 10 ^3/uL (0.4-5.4); Lymphocytes % (auto) 7.1 % (10.0-50.0); Mean Corpuscular Hemoglobin 34.1 pg (28.0-32.0); Mean Corpuscular Volume 97.4 fL (80.0-100.0); Monocytes # (auto) 0.4 10 ^3/uL (0-1.3); Monocytes % (auto) 4.8 % (0.0-12.0); Neutrophils # (auto) 7.6 10 ^3/uL (1.6-8.6); Neutrophils % (auto) 87.3 % (37.0-80.0); Nucleated Red Blood Cells % 0.1 %; Red Blood Cells 3.56 10^6/uL (4.0-5.20); White Blood Cell 8.7 10^3/uL (4.4-10.8)
[2021-08-24 06:22] LABS: Albumin 2.6 g/dL (3.4-5.0); Calcium 8.2 mg/dL (8.5-10.1); Potassium 3.6 mmol/L (3.5-5.1)
[2021-08-24 06:23] LABS: BUN/Creatinine Ratio 41.3
[2021-08-24 06:26] LABS: Bilirubin, Total 1.9 mg/dL (0.2-1.0); Total Protein 5.7 g/dL (6.4-8.2)
[2021-08-24] MEDS: InsuLIN REG 1unit/0.01ml Soln (100units/ml) SC SCH ×4 (06:40→21:41)
[2021-08-24] MEDS: ACCU-CHEK COMFORT CURVE STRIP VI SCH ×4 (06:40→21:37)
[2021-08-24 09:00] VITALS: BP 121/66
[2021-08-24] MEDS: Ensure HIGH Protein Chocolate 8oz Bottle PO SCH ×3 (09:55→18:22)
[2021-08-24] MEDS: cefTRIAXone 1GM/50ML D5W 50 ML IV SCH (09:59)
[2021-08-24] MEDS: POTASSIUM EFFERVESENT TAB 25 MEQ PO SCH (10:01)
[2021-08-24] MEDS: APIXABAN 5 MG TAB PO SCH ×2 (10:01→21:34)
[2021-08-24] MEDS: MEGESTROL ACETATE 20 MG TAB PO SCH ×2 (10:02→21:37)
[2021-08-24] MEDS: FUROSEMIDE 20 MG TAB PO SCH (10:02)
[2021-08-24] MEDS: SOTALOL HCL 80 MG TAB PO SCH ×2 (10:02→21:34)
[2021-08-24] MEDS: MAGNESIUM OXIDE 400 MG TAB PO SCH ×2 (10:02→21:34)
[2021-08-24] MEDS: PANTOPRAZOLE 40 MG TAB PO SCH (10:03)
[2021-08-24] MEDS: B-COMPLEX W/ C & FOLIC ACID(NEPHROVITE TAB) PO SCH (10:03)
[2021-08-24] MEDS: CHOLECALCIFEROL (VITD3) 2,000 UNIT CAP/TAB PO SCH (10:03)
[2021-08-24 13:00] VITALS: BP 128/67
[2021-08-24 17:00] VITALS: BP 100/66
[2021-08-24] MEDS ORDERED: MIDODRINE HCL 10 MG TAB PO ONE (20:45)
[2021-08-24 22:00] VITALS: BP 108/63
[2021-08-25 05:00] VITALS: BP 127/75
[2021-08-25 06:07] LABS: Albumin 2.7 g/dL (3.4-5.0); Basophils # (auto) 0 10 ^3/uL (0-0.2); Calcium 8.2 mg/dL (8.5-10.1); Eosinophils # (auto) 0.1 10 ^3/uL (0-0.8); Neutrophils # (auto) 10.3 10 ^3/uL (1.6-8.6); Nucleated Red Blood Cells % 0.1 %; Potassium 3.7 mmol/L (3.5-5.1)
[2021-08-25 06:08] LABS: Lactic Acid w/Reflex 2.1 mmol/L (0.4-2.0)
[2021-08-25 06:10] LABS: Basophils % (auto) 0.4 % (0.0-2.0); Eosinophils % (auto) 0.6 % (0.0-7.0); Hematocrit 32.5 % (36.0-46.0); Hemoglobin 11.6 g/dL (12.2-16.2); Lymphocytes # (auto) 0.8 10 ^3/uL (0.4-5.4); Lymphocytes % (auto) 7.2 % (10.0-50.0); Mean Corpuscular Hemoglobin 33.8 pg (28.0-32.0); Mean Corpuscular Hgb Conc. 35.6 g/dL (32.0-36.0); Mean Corpuscular Volume 94.8 fL (80.0-100.0); Monocytes # (auto) 0.4 10 ^3/uL (0-1.3); Monocytes % (auto) 3.8 % (0.0-12.0); Red Blood Cells 3.43 10^6/uL (4.0-5.20); Red Cell Distribution Width 15.6 % (11.8-14.3); White Blood Cell 11.7 10^3/uL (4.4-10.8)
[2021-08-25 06:13] LABS: BUN/Creatinine Ratio 37.3; Bilirubin, Total 1.7 mg/dL (0.2-1.0); Magnesium 1.9 mg/dL (1.6-2.6); Total Protein 5.8 g/dL (6.4-8.2)
[2021-08-25] MEDS: InsuLIN REG 1unit/0.01ml Soln (100units/ml) SC SCH ×4 (06:20→22:00)
[2021-08-25] MEDS: ACCU-CHEK COMFORT CURVE STRIP VI SCH ×4 (06:20→22:36)
[2021-08-25 08:30] VITALS: BP 98/40
[2021-08-25] MEDS: APIXABAN 5 MG TAB PO SCH ×2 (09:43→22:24)
[2021-08-25] MEDS: cefTRIAXone 1GM/50ML D5W 50 ML IV SCH (09:43)
[2021-08-25] MEDS: Ensure HIGH Protein Chocolate 8oz Bottle PO SCH ×3 (09:43→17:32)
[2021-08-25] MEDS: FUROSEMIDE 20 MG TAB PO SCH (09:44)
[2021-08-25] MEDS: POTASSIUM EFFERVESENT TAB 25 MEQ PO SCH (09:44)
[2021-08-25] MEDS: CHOLECALCIFEROL (VITD3) 2,000 UNIT CAP/TAB PO SCH (09:45)
[2021-08-25] MEDS: MEGESTROL ACETATE 20 MG TAB PO SCH ×2 (09:45→22:24)
[2021-08-25] MEDS: B-COMPLEX W/ C & FOLIC ACID(NEPHROVITE TAB) PO SCH (09:45)
[2021-08-25] MEDS: PANTOPRAZOLE 40 MG TAB PO SCH (09:45)
[2021-08-25] MEDS: MAGNESIUM OXIDE 400 MG TAB PO SCH ×2 (09:45→22:24)
[2021-08-25] MEDS: SOTALOL HCL 80 MG TAB PO SCH ×2 (09:46→22:00)
[2021-08-25 12:30] VITALS: BP 95/56
[2021-08-25 17:00] VITALS: BP 125/74
[2021-08-25 22:00] VITALS: BP 93/57
[2021-08-26 00:50] VITALS: BP 98/54
[2021-08-26 05:00] VITALS: BP 127/72
[2021-08-26] MEDS: ACCU-CHEK COMFORT CURVE STRIP VI SCH ×3 (06:45→17:03)
[2021-08-26] MEDS: InsuLIN REG 1unit/0.01ml Soln (100units/ml) SC SCH ×3 (06:45→17:00)
[2021-08-26 08:00] VITALS: BP 95/58
[2021-08-26] MEDS: Ensure HIGH Protein Chocolate 8oz Bottle PO SCH ×3 (08:00→17:03)
[2021-08-26] MEDS: APIXABAN 5 MG TAB PO SCH (10:00)
[2021-08-26] MEDS: CHOLECALCIFEROL (VITD3) 2,000 UNIT CAP/TAB PO SCH (10:00)
[2021-08-26] MEDS: MEGESTROL ACETATE 20 MG TAB PO SCH (10:00)
[2021-08-26] MEDS: PANTOPRAZOLE 40 MG TAB PO SCH (10:00)
[2021-08-26] MEDS: MAGNESIUM OXIDE 400 MG TAB PO SCH (10:00)
[2021-08-26] MEDS: B-COMPLEX W/ C & FOLIC ACID(NEPHROVITE TAB) PO SCH (10:00)
[2021-08-26] MEDS: FUROSEMIDE 20 MG TAB PO SCH (10:00)
[2021-08-26] MEDS: SOTALOL HCL 80 MG TAB PO SCH (10:00)
[2021-08-26] MEDS: POTASSIUM EFFERVESENT TAB 25 MEQ PO SCH (10:00)
[2021-08-26] MEDS: ERTAPENEM SOD INJ 0.5 GM in SODIUM CHL 0.9% 50 ML IV SCH ×2 (10:00→12:43)
[2021-08-26 12:41] LABS: Hepatitis A Ab IgM Negative; Hepatitis B Core IgM Negative; Hepatitis C Antibody Negative (Negative)
== END 2021-08-26 20:15 | DRG 871 ==
LOC: EDBD 15:04 → ER 15:04 → TELE 18:37 → TELE-CENTR 21:35
PROVIDERS: ADMIT Hospitalist; ATTEND Internal Medicine
PROC: 05HB33Z Insertion of Infusion Device into Right Basilic Vein, Percutaneous Approach (ICD-10-PCS; principal; 2021-08-22)
PROC: B54MZZA Ultrasonography of Right Upper Extremity Veins, Guidance (ICD-10-PCS; 2021-08-22)
PROC: 05H933Z Insertion of Infusion Device into Right Brachial Vein, Percutaneous Approach (ICD-10-PCS; 2021-08-26)
PROC: B54MZZA Ultrasonography of Right Upper Extremity Veins, Guidance (ICD-10-PCS; 2021-08-26)
DX: A41.59 Other Gram-negative sepsis (principal); J96.90 Respiratory failure, unspecified, unspecified whether with hypoxia or hypercapnia; I50.23 Acute on chronic systolic (congestive) heart failure; N39.0 Urinary tract infection, site not specified; Z68.1 Body mass index [BMI] 19.9 or less, adult; D68.69 Other thrombophilia; I13.0 Hypertensive heart and chronic kidney disease with heart failure and stage 1 through stage 4 chronic kidney disease, or unspecified chronic kidney disease; N17.9 Acute kidney failure, unspecified; A41.81 Sepsis due to Enterococcus; I48.0 Paroxysmal atrial fibrillation; E11.649 Type 2 diabetes mellitus with hypoglycemia without coma; R62.7 Adult failure to thrive; K21.9 Gastro-esophageal reflux disease without esophagitis; N18.31 Chronic kidney disease, stage 3a; D64.9 Anemia, unspecified; F02.80 Dementia in other diseases classified elsewhere, unspecified severity, without behavioral disturbance, psychotic disturbance, mood disturbance, and anxiety; G30.9 Alzheimer's disease, unspecified; Z20.822 Contact with and (suspected) exposure to COVID-19; I50.82 Biventricular heart failure; E11.22 Type 2 diabetes mellitus with diabetic chronic kidney disease; E87.6 Hypokalemia; Y95 Nosocomial condition; R79.89 Other specified abnormal findings of blood chemistry; I27.21 Secondary pulmonary arterial hypertension; Z79.899 Other long term (current) drug therapy; Z82.49 Family history of ischemic heart disease and other diseases of the circulatory system; Z86.711 Personal history of pulmonary embolism; Z90.710 Acquired absence of both cervix and uterus; Z88.0 Allergy status to penicillin; Z95.810 Presence of automatic (implantable) cardiac defibrillator; Z98.84 Bariatric surgery status; Z90.49 Acquired absence of other specified parts of digestive tract; Z79.84 Long term (current) use of oral hypoglycemic drugs
CPT/HCPCS: 36415; 70450; 71045; 76705; 80053; 80061; 80074; 81001; 82306; 82550; 82728; 82962; 83605; 83615; 83690; 83735; 83880; 84100; 84443; 84484; 85025; 85379; 85610; 85652; 85730; 86141; 87040; 87081; 87086; 87088; 87186; 93005; 96361; 96365; 96375; 97163; C9113; G0378; J0696; J1335; J1815; J2185

== ENCOUNTER 2021-11-26 00:43 | Inpatient (IN) | payer MEDICARE, OTHER ==
[~2021-11-26] VITALS: Ht 152.4 cm; Wt 53.2 kg
[2021-11-26 02:11] LABS: Basophils # (auto) 0 10 ^3/uL (0-0.2); Basophils % (auto) 0.3 % (0.0-2.0); Eosinophils # (auto) 0.1 10 ^3/uL (0-0.8); Eosinophils % (auto) 1.2 % (0.0-7.0); Hematocrit 35.9 % (36.0-46.0); Hemoglobin 12.5 g/dL (12.2-16.2); Lymphocytes % (auto) 18.1 % (10.0-50.0); Mean Corpuscular Hemoglobin 31.3 pg (28.0-32.0); Mean Corpuscular Hgb Conc. 34.8 g/dL (32.0-36.0); Mean Corpuscular Volume 89.9 fL (80.0-100.0); Monocytes # (auto) 0.5 10 ^3/uL (0-1.3); Neutrophils # (auto) 8.2 10 ^3/uL (1.6-8.6); Neutrophils % (auto) 75.4 % (37.0-80.0); Nucleated Red Blood Cells % 0.1 %; Red Cell Distribution Width 12.8 % (11.8-14.3); White Blood Cell 10.8 10^3/uL (4.4-10.8)
[2021-11-26 02:15] LABS: INR 1.08 (0.9-1.15); Partial Thromboplastin Time 22.2 sec (23.6-33.0)
[2021-11-26 02:19] LABS: Albumin 3.6 g/dL (3.4-5.0); Anion Gap 12 (5-15); BUN/Creatinine Ratio 18.4; Blood Alcohol < 3.0 mg/dL (0-5); Blood Urea Nitrogen 18 mg/dL (7-18); Calcium 8.9 mg/dL (8.5-10.1); Carbon Dioxide 25 mmol/L (21-32); Chloride 105 mmol/L (98-107); GFR African American 70 mL/min; GFR Non-African American 58 mL/min; Glucose 177 mg/dL (74-106); Magnesium 2.1 mg/dL (1.6-2.6); Sodium 142 mmol/L (136-145)
[2021-11-26 02:20] LABS: Lactic Acid w/Reflex 2.9 mmol/L (0.4-2.0)
[2021-11-26 02:23] LABS: Alanine Aminotransferase 11 U/L (13-56); Alkaline Phosphatase 75 U/L (45-117); Aspartate Aminotransferase 16 U/L (15-37); Potassium 2.8 mmol/L (3.5-5.1); Total Protein 6.7 g/dL (6.4-8.2)
[2021-11-26] MEDS ORDERED: SODIUM CHLORIDE 0.9% 1,000 ML IV ONE ×2 (02:30)
[2021-11-26] MEDS ORDERED: cefTRIAXone 1GM/50ML D5W 50 ML IV ONE (02:30)
[2021-11-26] MEDS ORDERED: POTASSIUM CHL 20MEQ/100ML 100 ML IV ONE (02:30)
[2021-11-26 03:53] LABS: Urine Bacteria MANY /hpf (None Seen); Urine Blood 1+ /uL (Negative); Urine Hyaline Cast MANY /lpf (0 - 2); Urine Mucus FEW (None Seen); Urine Specific Gravity 1.024 (1.001-1.035); Urine WBC 360 /hpf (0 - 5); Urine WBC Clumps PRESENT /hpf (None Seen)
[2021-11-26 03:57] LABS: Alcohol, Urine < 3.0 mg/dL (0-10); Amphetamine Screen, Urine NEGATIVE (NEGATIVE); Barbiturate Scree,Urine NEGATIVE (NEGATIVE); Benzodiazephine Screen, Urine NEGATIVE (NEGATIVE); Cocaine Screen, Urine NEGATIVE (NEGATIVE); Opiate Scree,Urine POSITIVE (NEGATIVE); Phencyclidine Screen, Urine NEGATIVE (NEGATIVE)
[2021-11-26 04:11] LABS: Cannabinoid Screen, Urine POSITIVE (NEGATIVE)
[2021-11-26] MEDS ORDERED: AMIODARONE HCL 150 MG in D5W 5% 100 ML IV ONE (04:15)
[2021-11-26] MEDS ORDERED: AMIODARONE 450mg/250ml AE 250 ML IV ONE (04:16)
[2021-11-26] MEDS ORDERED: AMIODARONE HCL (50 MG/ ML) 3 ML VIAL IV ONE (04:17)
[2021-11-26] MEDS ORDERED: AMIODARONE 450mg/250ml AE 250 ML IV SCH (04:30)
[2021-11-26] MEDS: AMIODARONE 450mg/250ml AE 250 ML IV SCH (10:30)
[2021-11-26] MEDS ORDERED: ONDANSETRON HCL 4 MG/2 ML VIAL IV PRN (12:15)
[2021-11-26] MEDS ORDERED: ACETAMINOPHEN 325 MG TAB PO PRN (12:15)
[2021-11-26] MEDS ORDERED: POTASSIUM CHL 20MEQ/100ML 100 ML IV SCH (13:45)
[2021-11-26] MEDS: hydrALAZINE HCL 20 MG/ML VL IV SCH ×2 (16:05→23:50)
[2021-11-26 17:00] VITALS: BP 177/118
[2021-11-26] MEDS: POTASSIUM CHL 20MEQ/100ML 100 ML IV SCH ×4 (17:08→23:20)
[2021-11-26] MEDS ORDERED: SACUBITRIL-VALSARTAN 24mg/26mg TAB PO ONE (17:30)
[2021-11-26 17:58] VITALS: BP 177/118
[2021-11-26] MEDS: APIXABAN 5 MG TAB PO SCH (21:25)
[2021-11-26 22:00] VITALS: BP 123/91
[2021-11-27] MEDS: METOPROLOL TARTRATE 50 MG TAB PO SCH ×2 (00:57→09:57)
[2021-11-27 04:41] LABS: Basophils # (auto) 0.1 10 ^3/uL (0-0.2); Basophils % (auto) 0.9 % (0.0-2.0); Eosinophils # (auto) 0 10 ^3/uL (0-0.8); Eosinophils % (auto) 0.5 % (0.0-7.0); Hematocrit 37.6 % (36.0-46.0); Hemoglobin 12.7 g/dL (12.2-16.2); Lymphocytes # (auto) 1.4 10 ^3/uL (0.4-5.4); Lymphocytes % (auto) 14.4 % (10.0-50.0); Mean Corpuscular Hemoglobin 30.3 pg (28.0-32.0); Mean Corpuscular Hgb Conc. 33.9 g/dL (32.0-36.0); Mean Corpuscular Volume 89.3 fL (80.0-100.0); Monocytes # (auto) 0.6 10 ^3/uL (0-1.3); Monocytes % (auto) 6.3 % (0.0-12.0); Neutrophils # (auto) 7.8 10 ^3/uL (1.6-8.6); Neutrophils % (auto) 77.9 % (37.0-80.0); Nucleated Red Blood Cells % 0.1 %; Red Blood Cells 4.21 10^6/uL (4.0-5.20); Red Cell Distribution Width 12.9 % (11.8-14.3)
[2021-11-27 04:57] LABS: Albumin 2.8 g/dL (3.4-5.0); Calcium 7.8 mg/dL (8.5-10.1); Potassium 3.8 mmol/L (3.5-5.1)
[2021-11-27 05:00] VITALS: BP 149/71
[2021-11-27 05:01] LABS: BUN/Creatinine Ratio 14.8; Bilirubin, Total 1.5 mg/dL (0.2-1.0); Total Protein 5.7 g/dL (6.4-8.2)
[2021-11-27] MEDS: hydrALAZINE HCL 20 MG/ML VL IV SCH ×3 (05:25→16:39)
[2021-11-27] MEDS: AMIODARONE 450mg/250ml AE 250 ML IV SCH (05:33)
[2021-11-27 08:00] VITALS: BP 140/58
[2021-11-27] MEDS: SACUBITRIL-VALSARTAN 24mg/26mg TAB PO SCH (09:56)
[2021-11-27] MEDS: APIXABAN 5 MG TAB PO SCH ×2 (09:56→21:33)
[2021-11-27] MEDS ORDERED: ENOXAPARIN SOD 40 MG/0.4 ML SYRINGE SC SCH (10:00)
[2021-11-27] MEDS ORDERED: cefTRIAXone 1GM/50ML D5W 50 ML IV ONE (11:00)
[2021-11-27] MEDS ORDERED: SOTALOL HCL 80 MG TAB PO ONE (11:00)
[2021-11-27] MEDS ORDERED: POTASSIUM CHL 10 Meq TABLET PO ONE (11:00)
[2021-11-27] MEDS ORDERED: FUROSEMIDE 20 MG TAB PO ONE (11:00)
[2021-11-27 16:00] VITALS: BP 141/75
[2021-11-27] MEDS ORDERED: SODIUM CHLORIDE 0.9% 1,000 ML IV ONE (16:45)
[2021-11-27] MEDS: SOTALOL HCL 80 MG TAB PO SCH (21:33)
[2021-11-27] MEDS: levETIRAcetam 500 MG TAB PO SCH (21:34)
[2021-11-27 22:00] VITALS: BP 136/77
[2021-11-28 05:00] VITALS: BP 138/50
[2021-11-28] MEDS: hydrALAZINE HCL 20 MG/ML VL IV SCH ×4 (05:01→17:57)
[2021-11-28] MEDS: cefTRIAXone 1GM/50ML D5W 50 ML IV SCH (09:12)
[2021-11-28] MEDS: SOTALOL HCL 80 MG TAB PO SCH ×2 (09:13→21:57)
[2021-11-28] MEDS: SACUBITRIL-VALSARTAN 24mg/26mg TAB PO SCH (09:14)
[2021-11-28] MEDS: levETIRAcetam 500 MG TAB PO SCH ×2 (09:14→21:57)
[2021-11-28] MEDS: APIXABAN 5 MG TAB PO SCH ×2 (09:14→21:57)
[2021-11-28] MEDS: FUROSEMIDE 20 MG TAB PO SCH (09:15)
[2021-11-28] MEDS: POTASSIUM CHL 10 Meq TABLET PO SCH (09:15)
[2021-11-28 09:24] VITALS: BP 135/76
[2021-11-28] MEDS ORDERED: VANCOMYCIN PER PHARMACY 0 MG IV SCH (10:30)
[2021-11-28] MEDS ORDERED: SODIUM CHLORIDE 0.9% 500 ML IV SCH (12:30)
[2021-11-28 13:00] VITALS: BP 104/38
[2021-11-28] MEDS ORDERED: VANCOMYCIN 1GM/250ML 250 ML IV SCH (13:00)
[2021-11-28 13:19] LABS: Basophils # (auto) 0.1 10 ^3/uL (0-0.2); Basophils % (auto) 0.6 % (0.0-2.0); Eosinophils # (auto) 0.1 10 ^3/uL (0-0.8); Eosinophils % (auto) 0.6 % (0.0-7.0); Hematocrit 43.9 % (36.0-46.0); Hemoglobin 14.6 g/dL (12.2-16.2); Lymphocytes # (auto) 2.8 10 ^3/uL (0.4-5.4); Mean Corpuscular Hemoglobin 30.6 pg (28.0-32.0); Mean Corpuscular Hgb Conc. 33.2 g/dL (32.0-36.0); Mean Corpuscular Volume 92.3 fL (80.0-100.0); Monocytes % (auto) 7.2 % (0.0-12.0); Neutrophils % (auto) 71.6 % (37.0-80.0); Nucleated Red Blood Cells % 1.5 %; Red Blood Cells 4.76 10^6/uL (4.0-5.20); Red Cell Distribution Width 13.2 % (11.8-14.3)
[2021-11-28 13:27] LABS: Calcium 8.3 mg/dL (8.5-10.1); Potassium 4.9 mmol/L (3.5-5.1)
[2021-11-28 13:29] LABS: BUN/Creatinine Ratio 18.3
[2021-11-28 16:53] VITALS: BP 129/49
[2021-11-28 22:00] VITALS: BP 135/59
[2021-11-29] MEDS: hydrALAZINE HCL 20 MG/ML VL IV SCH ×4 (00:01→18:00)
[2021-11-29 05:00] VITALS: BP 101/59
[2021-11-29 09:13] VITALS: BP 120/90
[2021-11-29] MEDS: cefTRIAXone 1GM/50ML D5W 50 ML IV SCH (09:55)
[2021-11-29 09:56] LABS: BUN/Creatinine Ratio 19.7; Calcium 8.3 mg/dL (8.5-10.1); Potassium 4.2 mmol/L (3.5-5.1)
[2021-11-29] MEDS: APIXABAN 5 MG TAB PO SCH ×2 (10:14→23:00)
[2021-11-29] MEDS: SOTALOL HCL 80 MG TAB PO SCH ×2 (10:14→22:59)
[2021-11-29] MEDS: levETIRAcetam 500 MG TAB PO SCH ×2 (10:15→23:00)
[2021-11-29] MEDS: SACUBITRIL-VALSARTAN 24mg/26mg TAB PO SCH (10:15)
[2021-11-29] MEDS: POTASSIUM CHL 10 Meq TABLET PO SCH (10:15)
[2021-11-29] MEDS: FUROSEMIDE 20 MG TAB PO SCH (10:15)
[2021-11-29 13:00] VITALS: BP 86/61
[2021-11-29 17:11] VITALS: BP 134/83
[2021-11-29 22:00] VITALS: BP 148/119
[2021-11-29 23:55] VITALS: BP 107/63
[2021-11-30] MEDS ORDERED: VANCOMYCIN 1GM/250ML 250 ML IV SCH (01:00)
[2021-11-30 05:00] VITALS: BP 99/60
[2021-11-30] MEDS: hydrALAZINE HCL 20 MG/ML VL IV SCH ×4 (05:30→18:00)
[2021-11-30 08:43] LABS: Basophils # (auto) 0 10 ^3/uL (0-0.2); Basophils % (auto) 0.3 % (0.0-2.0); Eosinophils # (auto) 0.2 10 ^3/uL (0-0.8); Eosinophils % (auto) 1.7 % (0.0-7.0); Hematocrit 39.3 % (36.0-46.0); Lymphocytes # (auto) 1.6 10 ^3/uL (0.4-5.4); Lymphocytes % (auto) 16.6 % (10.0-50.0); Mean Corpuscular Hemoglobin 30.4 pg (28.0-32.0); Mean Corpuscular Volume 91.9 fL (80.0-100.0); Monocytes # (auto) 0.7 10 ^3/uL (0-1.3); Monocytes % (auto) 7.1 % (0.0-12.0); Neutrophils # (auto) 7.3 10 ^3/uL (1.6-8.6); Neutrophils % (auto) 74.3 % (37.0-80.0); Nucleated Red Blood Cells % 0.5 %; Red Blood Cells 4.28 10^6/uL (4.0-5.20); Red Cell Distribution Width 13.2 % (11.8-14.3); White Blood Cell 9.8 10^3/uL (4.4-10.8)
[2021-11-30 09:00] VITALS: BP 135/31
[2021-11-30] MEDS: FUROSEMIDE 20 MG TAB PO SCH (10:00)
[2021-11-30] MEDS: SOTALOL HCL 80 MG TAB PO SCH ×2 (10:00→21:52)
[2021-11-30] MEDS: SACUBITRIL-VALSARTAN 24mg/26mg TAB PO SCH (10:00)
[2021-11-30] MEDS: levETIRAcetam 500 MG TAB PO SCH ×2 (10:12→21:52)
[2021-11-30] MEDS: cefTRIAXone 1GM/50ML D5W 50 ML IV SCH (10:12)
[2021-11-30] MEDS: APIXABAN 5 MG TAB PO SCH ×2 (10:13→21:52)
[2021-11-30] MEDS: POTASSIUM CHL 10 Meq TABLET PO SCH (10:13)
[2021-11-30 12:16] LABS: Albumin 2.8 g/dL (3.4-5.0); Potassium 3.6 mmol/L (3.5-5.1)
[2021-11-30 12:19] LABS: Bilirubin, Total 0.7 mg/dL (0.2-1.0); Total Protein 5.8 g/dL (6.4-8.2)
[2021-11-30 13:00] VITALS: BP 114/70
[2021-11-30 17:00] VITALS: BP 134/62
[2021-11-30] MEDS: MEROPENEM 1GM IVPB 100 ML IV SCH (21:17)
[2021-11-30] MEDS: LINEZOLID 600MG/300ML 300 ML IV SCH (21:51)
[2021-11-30 21:52] VITALS: BP 129/61
[2021-11-30] MEDS ORDERED: MEROPENEM 1GM IVPB 100 ML IV SCH (22:00)
[2021-12-01 04:39] VITALS: BP 121/65
[2021-12-01] MEDS: hydrALAZINE HCL 20 MG/ML VL IV SCH ×4 (05:35→17:59)
[2021-12-01] MEDS: SODIUM CHLORIDE 0.9% 1,000 ML IV SCH (08:35)
[2021-12-01 09:00] VITALS: BP 120/44
[2021-12-01] MEDS: MEROPENEM 1GM IVPB 100 ML IV SCH ×2 (09:47→22:00)
[2021-12-01] MEDS: APIXABAN 5 MG TAB PO SCH ×2 (09:47→22:00)
[2021-12-01] MEDS: SOTALOL HCL 80 MG TAB PO SCH ×2 (09:48→22:03)
[2021-12-01] MEDS: FUROSEMIDE 20 MG TAB PO SCH (09:48)
[2021-12-01] MEDS: SACUBITRIL-VALSARTAN 24mg/26mg TAB PO SCH (09:48)
[2021-12-01] MEDS: POTASSIUM CHL 10 Meq TABLET PO SCH (09:48)
[2021-12-01] MEDS: levETIRAcetam 500 MG TAB PO SCH ×2 (09:48→22:00)
[2021-12-01] MEDS: LINEZOLID 600MG/300ML 300 ML IV SCH ×2 (10:13→22:00)
[2021-12-01 13:00] VITALS: BP 109/40
[2021-12-01 17:14] VITALS: BP 116/58
[2021-12-01 22:00] VITALS: BP 121/50
[2021-12-02] MEDS: SODIUM CHLORIDE 0.9% 1,000 ML IV SCH (02:00)
[2021-12-02 05:00] VITALS: BP 124/86
[2021-12-02] MEDS: hydrALAZINE HCL 20 MG/ML VL IV SCH ×4 (05:49→17:57)
[2021-12-02 07:21] LABS: Basophils # (auto) 0 10 ^3/uL (0-0.2); Basophils % (auto) 0.5 % (0.0-2.0); Eosinophils # (auto) 0.3 10 ^3/uL (0-0.8); Eosinophils % (auto) 3.5 % (0.0-7.0); Hematocrit 36.9 % (36.0-46.0); Hemoglobin 12.6 g/dL (12.2-16.2); Lymphocytes # (auto) 1.5 10 ^3/uL (0.4-5.4); Lymphocytes % (auto) 19.1 % (10.0-50.0); Mean Corpuscular Hemoglobin 31.5 pg (28.0-32.0); Mean Corpuscular Hgb Conc. 34.2 g/dL (32.0-36.0); Mean Corpuscular Volume 91.9 fL (80.0-100.0); Monocytes # (auto) 0.5 10 ^3/uL (0-1.3); Monocytes % (auto) 6.6 % (0.0-12.0); Neutrophils # (auto) 5.6 10 ^3/uL (1.6-8.6); Neutrophils % (auto) 70.3 % (37.0-80.0); Nucleated Red Blood Cells % 0.3 %; Red Blood Cells 4.02 10^6/uL (4.0-5.20); White Blood Cell 7.9 10^3/uL (4.4-10.8)
[2021-12-02 07:31] LABS: Albumin 2.6 g/dL (3.4-5.0); BUN/Creatinine Ratio 19.1; Calcium 7.6 mg/dL (8.5-10.1); Potassium 3.6 mmol/L (3.5-5.1)
[2021-12-02 07:33] LABS: Bilirubin, Total 0.9 mg/dL (0.2-1.0); Total Protein 5.2 g/dL (6.4-8.2)
[2021-12-02 09:00] VITALS: BP 127/87
[2021-12-02] MEDS ORDERED: ERTAPENEM SOD INJ 1 GM in SODIUM CHL 0.9% 50 ML IV ONE (10:15)
[2021-12-02] MEDS: LINEZOLID 600MG/300ML 300 ML IV SCH ×2 (10:45→21:21)
[2021-12-02] MEDS: SOTALOL HCL 80 MG TAB PO SCH ×2 (10:45→21:22)
[2021-12-02] MEDS: POTASSIUM CHL 10 Meq TABLET PO SCH (10:46)
[2021-12-02] MEDS: APIXABAN 5 MG TAB PO SCH ×2 (10:46→21:22)
[2021-12-02] MEDS: levETIRAcetam 500 MG TAB PO SCH ×2 (10:46→21:22)
[2021-12-02] MEDS: FUROSEMIDE 20 MG TAB PO SCH (10:46)
[2021-12-02] MEDS: SACUBITRIL-VALSARTAN 24mg/26mg TAB PO SCH (10:46)
[2021-12-02 12:45] VITALS: BP 113/78
[2021-12-02 17:09] VITALS: BP 112/73
[2021-12-02 21:59] VITALS: BP 122/64
[2021-12-03 05:00] VITALS: BP 114/43
[2021-12-03] MEDS: hydrALAZINE HCL 20 MG/ML VL IV SCH ×4 (06:00→18:00)
[2021-12-03 09:00] VITALS: BP 92/63
[2021-12-03] MEDS: ERTAPENEM SOD INJ 1 GM in SODIUM CHL 0.9% 50 ML IV SCH (10:28)
[2021-12-03] MEDS: SOTALOL HCL 80 MG TAB PO SCH ×2 (10:29→22:00)
[2021-12-03] MEDS: SACUBITRIL-VALSARTAN 24mg/26mg TAB PO SCH (10:29)
[2021-12-03] MEDS: LINEZOLID 600MG/300ML 300 ML IV SCH ×2 (10:29→22:19)
[2021-12-03] MEDS: APIXABAN 5 MG TAB PO SCH ×2 (10:29→22:18)
[2021-12-03] MEDS: FUROSEMIDE 20 MG TAB PO SCH (10:30)
[2021-12-03] MEDS: POTASSIUM CHL 10 Meq TABLET PO SCH (10:30)
[2021-12-03] MEDS: levETIRAcetam 500 MG TAB PO SCH ×2 (10:30→22:18)
[2021-12-03 13:00] VITALS: BP 99/81
[2021-12-03 17:00] VITALS: BP 97/64
[2021-12-03 22:00] VITALS: BP 94/55
[2021-12-04 05:00] VITALS: BP 101/48
[2021-12-04] MEDS: hydrALAZINE HCL 20 MG/ML VL IV SCH ×4 (05:46→18:00)
[2021-12-04 09:00] VITALS: BP 94/51
[2021-12-04] MEDS: POTASSIUM CHL 10 Meq TABLET PO SCH (10:18)
[2021-12-04] MEDS: FUROSEMIDE 20 MG TAB PO SCH (10:18)
[2021-12-04] MEDS: APIXABAN 5 MG TAB PO SCH ×2 (10:18→21:14)
[2021-12-04] MEDS: levETIRAcetam 500 MG TAB PO SCH ×2 (10:18→21:14)
[2021-12-04] MEDS: SOTALOL HCL 80 MG TAB PO SCH ×2 (10:19→21:13)
[2021-12-04] MEDS: SACUBITRIL-VALSARTAN 24mg/26mg TAB PO SCH (10:20)
[2021-12-04] MEDS: ERTAPENEM SOD INJ 1 GM in SODIUM CHL 0.9% 50 ML IV SCH (10:29)
[2021-12-04] MEDS: LINEZOLID 600MG/300ML 300 ML IV SCH ×2 (11:30→21:13)
[2021-12-04] MEDS: Ensure Enlive Strawberry 8oz Bottle PO SCH ×2 (12:00→18:00)
[2021-12-04 13:00] VITALS: BP 97/73
[2021-12-04 16:42] VITALS: BP 90/50
[2021-12-04 22:00] VITALS: BP 135/59
[2021-12-05 05:00] VITALS: BP 145/42
[2021-12-05] MEDS: hydrALAZINE HCL 20 MG/ML VL IV SCH ×4 (05:13→17:30)
[2021-12-05 06:39] LABS: Albumin 1.9 g/dL (3.4-5.0); Calcium 7.7 mg/dL (8.5-10.1); Potassium 4.1 mmol/L (3.5-5.1)
[2021-12-05 06:41] LABS: BUN/Creatinine Ratio 12.8; Phosphorus 2.4 mg/dL (2.5-4.90)
[2021-12-05] MEDS: Ensure Enlive Strawberry 8oz Bottle PO SCH ×3 (07:46→17:30)
[2021-12-05 09:17] VITALS: BP 96/47
[2021-12-05] MEDS: levETIRAcetam 500 MG TAB PO SCH (10:00)
[2021-12-05] MEDS: POTASSIUM CHL 10 Meq TABLET PO SCH (10:00)
[2021-12-05] MEDS: SACUBITRIL-VALSARTAN 24mg/26mg TAB PO SCH (10:00)
[2021-12-05] MEDS: APIXABAN 5 MG TAB PO SCH (10:06)
[2021-12-05] MEDS: SOTALOL HCL 80 MG TAB PO SCH (10:06)
[2021-12-05] MEDS: FUROSEMIDE 20 MG TAB PO SCH (10:06)
[2021-12-05] MEDS: ERTAPENEM SOD INJ 1 GM in SODIUM CHL 0.9% 50 ML IV SCH (10:27)
[2021-12-05] MEDS: LINEZOLID 600MG/300ML 300 ML IV SCH (12:11)
[2021-12-05 13:00] VITALS: BP 96/54
[2021-12-05 15:54] VITALS: BP 96/54
[2021-12-05 16:11] VITALS: BP 102/49
== END 2021-12-05 17:00 | disposition home or self-care (01) | DRG 871 ==
LOC: ER 00:43 → EDBD 00:43 → TELE 12:14 → TELE-CENTR 16:46
PROVIDERS: ADMIT Internal Medicine; ATTEND Internal Medicine
PROC: 05H933Z Insertion of Infusion Device into Right Brachial Vein, Percutaneous Approach (ICD-10-PCS; principal; 2021-11-26)
PROC: B54MZZA Ultrasonography of Right Upper Extremity Veins, Guidance (ICD-10-PCS; 2021-11-26)
PROC: 05HA33Z Insertion of Infusion Device into Left Brachial Vein, Percutaneous Approach (ICD-10-PCS; 2021-11-26)
PROC: B54NZZA Ultrasonography of Left Upper Extremity Veins, Guidance (ICD-10-PCS; 2021-11-26)
DX: A41.81 Sepsis due to Enterococcus (principal); E43 Unspecified severe protein-calorie malnutrition; G92.8 Other toxic encephalopathy; I50.33 Acute on chronic diastolic (congestive) heart failure; N39.0 Urinary tract infection, site not specified; D68.69 Other thrombophilia; Z16.21 Resistance to vancomycin; Z66 Do not resuscitate; Z20.822 Contact with and (suspected) exposure to COVID-19; G40.909 Epilepsy, unspecified, not intractable, without status epilepticus; E87.6 Hypokalemia; I48.91 Unspecified atrial fibrillation; F03.90 Unspecified dementia, unspecified severity, without behavioral disturbance, psychotic disturbance, mood disturbance, and anxiety; E86.1 Hypovolemia; I11.0 Hypertensive heart disease with heart failure; Z79.899 Other long term (current) drug therapy; Z88.0 Allergy status to penicillin; Z68.20 Body mass index [BMI] 20.0-20.9, adult; Z51.5 Encounter for palliative care; Z82.49 Family history of ischemic heart disease and other diseases of the circulatory system; Z87.820 Personal history of traumatic brain injury; Z90.49 Acquired absence of other specified parts of digestive tract; Z90.710 Acquired absence of both cervix and uterus; Z95.810 Presence of automatic (implantable) cardiac defibrillator; B96.89 Other specified bacterial agents as the cause of diseases classified elsewhere
CPT/HCPCS: 36415; 36600; 70450; 71045; 80048; 80053; 80069; 80307; 80320; 81001; 82805; 83036; 83605; 83735; 83880; 84484; 85025; 85049; 85610; 85730; 87040; 87086; 87088; 87186; 92610; 93005; 95819; 96365; 96367; 97110; 97530; 99291; G0378; J0696; J1335; J2185; J3480; J7060